=== PATIENT | female | born 1955 | race Caucasian/White ===

== ENCOUNTER 2021-04-01 11:47 | Outpatient (CLI) | payer MEDICARE, BC, SELFPAY ==
--- NOTE | 2021-04-01 11:57 | RAD_ITS ---
STUDY: X-RAY CHEST REASON FOR EXAM: Female, 65 years old. PAIN TECHNIQUE: Frontal and lateral views of the chest COMPARISON: None. FINDINGS: The lungs are clear and expanded. There is no demonstrated pleural abnormality. Normal size heart. Normal mediastinum and brando. Normal visualized pulmonary arteries. Normal visualized aortic arch and descending thoracic aorta. Normal visualized thoracic spine. Normal visualized ribs, clavicles, and shoulders. There is no demonstrated abnormality of the visualized soft tissue structures of the upper abdomen. RAD/Chest PA and Lateral IMPRESSION: Normal x-ray examination of the chest. Electronically Signed: Joaquin Gross MD at 17:27 EST ,
== END 2021-04-01 23:59 | disposition short-term general hospital (02) ==
LOC: MTRAD 11:55
PROVIDERS: PCP Family Medicine; Referring Provider Family Medicine; Visit Provider Family Medicine
DX: M54.9 Dorsalgia, unspecified (principal)
CPT/HCPCS: 71046

== ENCOUNTER 2021-04-21 10:07 | Outpatient (CLI) | payer MEDICARE, BC, SELFPAY ==
--- NOTE | 2021-04-21 10:17 | MRI_ITS ---
STUDY: MRI THORACIC SPINE WITHOUT CONTRAST REASON FOR EXAM: Female, 65 years old. RT SIDED BACK PAIN TECHNIQUE: Standardized fat and water weighted pulse sequences were obtained in the sagittal and axial planes. COMPARISON: None. FINDINGS: Normal kyphosis of the thoracic spine. There is no substantial scoliosis. T1-2, T2-3, T3-4, T4-5, T5-6, T6-7, T7-8, T8-9, T9-10, T10-11, T11-12: Normal endplates. Normal disc hydration, heights and morphology of the corresponding intervertebral discs. Normal central canal and intervertebral neural foramina at the corresponding levels. Normal visualized thoracic cord. Normal conus medullaris that terminates at the L1.. The soft tissue structures are unremarkable. MRI/Spine Thoracic (Routine) IMPRESSION: Normal unenhanced MRI examination of the thoracic spine. Electronically Signed: Ilya Benavides MD at 13:48 EST ,
== END 2021-04-21 23:59 | disposition home or self-care (01) ==
LOC: MRI 10:09
PROVIDERS: PCP Family Medicine; Referring Provider Family Medicine; Visit Provider Family Medicine
DX: M54.6 Pain in thoracic spine (principal)
CPT/HCPCS: 72146

== ENCOUNTER 2021-05-15 17:42 | Outpatient (CLI) | payer MEDICARE, BC, SELFPAY ==
--- NOTE | 2021-05-15 17:54 | CT_ITS ---
INDICATION: Abdominal pain. EXAMINATION: CT ABDOMEN WITH IV CONTRAST CT Abdomen W/ Contrast Injection TECHNIQUE: Helically acquired images were obtained of the abdomen following IV contrast. A radiation dose optimization technique was used for this scan. IV Contrast dosage and agent: 100 mL of [id number] Oral contrast: None. COMPARISON: None. FINDINGS: Lower thorax: Segmental subsegmental atelectasis in the lung bases. Otherwise, the lung bases are clear. Liver: Normal morphology. No masses. Gallbladder: Normal appearance. No bile duct dilation. Spleen: Unremarkable. Pancreas: No focal parenchymal lesion. No duct dilation. Adrenal glands: Unremarkable. Kidneys: No cystic or solid masses. No hydronephrosis. Visualized GI tract: No significant wall thickening or bowel dilation. No acute findings. Visualized Peritoneum/mesentery/retroperitoneum: No free air or free fluid. No masses. No lymphadenopathy. Pelvis: No acute findings in the minimally visualized pelvis. Vasculature: Unremarkable. Bones/soft tissues: No acute fracture or subluxation. 4 mm of grade 1 anterolisthesis of L4 on L5. Levoscoliosis of the lumbar spine with apex of the curve at L4 which likely contributes to the moderate to severe degenerative disc disease seen at L4-L5. No other significant degenerative changes. No destructive osseous lesions. Soft tissues are unremarkable. CT/Abdomen WITH IV Contrast IMPRESSION: 1. No acute findings in the abdomen. 2. Levoscoliosis of the lumbar spine with apex of the curve at L4 which likely contributes to the moderate to severe degenerative disc disease at the L4-L5 level. Electronically Signed: Nader Nevarez, at 8:59 EDT ,
[2021-05-15 18:06] LABS: CREATININE FINGERSTICK 0.6 mg/dL (0.55-1.02); EGFR FINGERSTICK > 60.0000 mL/min (>60)
== END 2021-05-15 23:59 | disposition home or self-care (01) ==
LOC: CT 17:42
PROVIDERS: PCP Family Medicine; Visit Provider Family Medicine
DX: R10.11 Right upper quadrant pain (principal)
CPT/HCPCS: 74160; Q9967

== ENCOUNTER → 2021-07-22 | Outpatient (CLI) | payer MEDICARE, BC, SELFPAY ==
--- NOTE | 2021-07-22 08:52 | BD_ITS ---
STUDY: DUAL ENERGY X-RAY ABSORPTIOMETRY / DXA REASON FOR EXAM: Female, 65 years old. M85.89. The patient is postmenopausal. TECHNIQUE: Bone Mineral Density (BMD) measurements of lumbar spine and bilateral hips were obtained. COMPARISON: None. FINDINGS: Lumbar Spine (L1-L4): g/cm2 (0.881) / T-score (-1.2) / Z-score (0.7) Findings are suggestive of osteopenia with a low fracture risk. Left Femur Total: g/cm2 (0.841) / T-score (-0.8) / Z-score (0.5) Left Femoral Neck: g/cm2 (0.695) / T-score (-1.4) / Z-score (0.3) Right Femur Total: g/cm2 (0.808) / T-score (-1.1) / Z-score (0.3) Right Femoral Neck: g/cm2 (0.675) / T-score (-1.6) / Z-score (0.1) BD/Dexa Bone Density Study IMPRESSION: The patient is considered osteopenic as outlined below according to World Justo Organization (WHO) criteria with a moderate fracture risk. Reference Information: The T-score is the number of standard deviations above or below the standard which is normal for young adults at their peak bone mineral density. The World Health Organization (WHO) interprets the T-scores as follows: Above -1 Normal bone density Between -1 and -2.5 Osteopenia Equal to / or below -2.5 Osteoporosis As a practical clinical guideline, osteopenia may be graded as follows: Mild -1 through -1.5 Moderate -1.6 through -2.0 Severe -2.1 through -2.4 The Z-score is the number of standard deviations above or below age-matched controls. A Z-score of less than -1.5 would be considered abnormal. References: 1. NIH Osteoporosis and Related Bone Diseases www osteo.org 2. International Society for Clinical Densitometry www iscd.org 3. National Osteoporosis Foundation www nof.org Electronically Signed: Juan David Ruiz MD at 9:03 EDT ,
== END | disposition home or self-care (01) ==
LOC: OPBD 08:47
PROVIDERS: PCP Family Medicine; Visit Provider Family Medicine
DX: M85.89 Other specified disorders of bone density and structure, multiple sites (principal)
CPT/HCPCS: 77080

== ENCOUNTER → 2021-10-20 | Outpatient (CLI) | payer MEDICARE, BC, SELFPAY ==
--- NOTE | 2021-10-20 08:37 | BI_ITS ---
MAMMOGRAPHY - BILATERAL SCREENING REASON FOR EXAM: Female, 65 years old. Routine annual screening examination. PERTINENT HISTORY: Non-contributory. TECHNIQUE: Digital bilateral breast lance (3D mammographic acquisition) in the CC and MLO projections. 2-D mediolateral oblique (MLO) and craniocaudad (CC) views of both breasts were obtained. CAD: Full Field Digital Mammography with Computer Added Detection was performed. COMPARISON: No comparison mammograms available at this time. If any prior films become available, an addendum to this report can be generated. FINDINGS: Breast Composition: The breasts are heterogeneously dense, which may obscure small masses. There are no dominant masses or suspicious calcifications. No other significant abnormalities are identified. BI/SCRN MAMM (CAD)W/LANCE BILAT IMPRESSION: Negative screening mammogram. Yearly followup mammogram recommended. (A) ASSESSMENT CATEGORY: BIRADS Category 1: Negative. A letter regarding these results will be sent to the patient by the facility within 30 days. Approximately 10% of breast cancers are not detected by mammography. A normal mammogram should not delay biopsy of a clinically suspicious abnormality. [id number] Electronically Signed: Juan David Ruiz MD at 13:41 EDT ,
== END | disposition home or self-care (01) ==
LOC: OPBI 08:36
PROVIDERS: PCP Family Medicine; Visit Provider Family Medicine
DX: Z12.31 Encounter for screening mammogram for malignant neoplasm of breast (principal)
CPT/HCPCS: 77063; 77067

== ENCOUNTER → 2022-01-06 | Outpatient (CLI) | payer MEDICARE, BC, SELFPAY ==
[2022-01-06 08:57] LABS: Absolute Lymphocyte Count 1.45 X10^3/uL (0.83-4.51); Absolute Neutrophil Count 1.8 X10^3/uL (2.0-7.7); Basophil# 0.04 X10^3/uL; Basophil% 1.1 % (0-1); Eosinophil# 0.07 X10^3/uL; Eosinophils% 1.9 % (0-5); Hematocrit 43.3 % (37-47); Hemoglobin 14.9 g/dL (12.0-15.0); Lymphocyte # 1.45 X10^3/ul (0.83-4.51); Lymphocyte % 39.2 % (19-41); Mean Corp Hgb Conc 34.4 g/dL (32-36); Mean Corpuscular Hgb 31.8 pg (27.0-32.0); Mean Corpuscular Volume 92.3 fL (81-99); Mean Platelet Vol. 8.5 fl (6.2-12.0); Monocyte# 0.38 X10^3/uL; Monocyte% 10.3 % (0-10); NRBC Flagged by Analyzer 0 % (0-5); Neutrophil # 1.75 X10^3/uL (2.7-7.7); Neutrophil % 47.2 % (47-70); Platelet Count 300 K/mm3 (150-450); RBC Distribution Width CV 12.6 % (11.6-14.6); RBC Distribution Width SD 42.7 fl (35.1-43.9); Red Blood Count 4.69 M/mm3 (4.2-5.4); White Blood Count 3.7 K/mm3 (4.4-11.0)
[2022-01-06 09:16] LABS: Hemoglobin A1c 5.9 % (3.8-5.6)
[2022-01-06 09:30] LABS: Vitamin D,25 Hydroxy 53.2 ng/mL
[2022-01-06 09:42] LABS: ALB/GLOB Ratio 1.2 RATIO (0.9-2.4); AST(SGOT) 16 U/L (15-37); Alanine Aminotransfer ALT/SGPT 32 U/L (13-56); Albumin, Serum 3.7 g/dL (3.2-5.0); Alkaline Phosphatase 86 U/L (45-117); Anion Gap 7 (5-15); BUN 18 mg/dL (7-18); BUN/Creat Ratio 24.9 RATIO (10-20); Calcium,Total 9.2 mg/dL (8.5-10.1); Chloride 103 mmol/L (98-107); Cholesterol 237 mg/dL (200); Creatinine, Serum 0.72 mg/dL (0.55-1.02); EST Glomerular Filtration Rate 85 mL/min (>60); Est Glom Filt Rate - Afr Amer 103 mL/min (>60); Glucose 99 mg/dL (74-106); High Density Lipoprotein 110 mg/dL; Potassium 4.5 mmol/L (3.5-5.1); Protein, Total 6.7 g/dL (6.4-8.2); Sodium Level 138 mmol/L (136-145); Thyroid Stim Hormone (TSH) 1.03 uIU/mL (0.358-3.74); Triglycerides 84 mg/dL; Very Low Density Lipoprotein 17 mg/dL (5-40)
== END | disposition home or self-care (01) ==
LOC: LAB 08:19
PROVIDERS: PCP Family Medicine; Referring Provider Family Medicine; Visit Provider Family Medicine
DX: I10 Essential (primary) hypertension (principal); R73.03 Prediabetes; R53.83 Other fatigue
CPT/HCPCS: 36415; 80053; 80061; 82306; 83036; 84443; 85025

== ENCOUNTER 2022-02-11 10:30 | Outpatient (RCR) | payer MEDICARE, BC, SELFPAY ==
--- NOTE | 2021-12-15 11:36 | HP.PTREVAL ---
Dr. Ekaterina Dennis MD, It has been my pleasure to treat JOELLE KIRKPATRICK over the last 4 visits for R shoulder pain. Please see the progress note below for an update on the physical therapy plan of care! Subjective: I am much better but i still have some pain with quick movements Objective/Function: R shoulder pain ranges from 0-3/10. R shoulder ROM: flex= 165, scap= 165. R shoulder MMT: flex= 14, abd= 24 #F. Pt is progressing well at this time. Still limited with advanced functional mobility (pickle ball) Plan Plan: Reassess in 1 month Balance/Gait/Functional tests - Balance/Special Test Scores Quick DASH Score: 22.7250 Goals Goal 1:: I with HEP of R shoulder rotator cuff and scap stab ex's Goal Time Frame: 1 Week Goal Progress: Goal Met Anticipated Interventions Patient/Client Instruction: Educate patient on: Condition, Plan of Care For the Purpose of:: To improve self management Therapeutic Exercise to Include: Strength training, Scapular Strength/Stabilization For the Purpose of:: To decrease pain, To improve muscle performance and motor function Cryotherapy (ice pack, ice massage): Yes For the Purpose of:: To decrease pain, To improve muscle performance and motor function Please do not hesitate to contact me at [phone] by phone or if you have questions or concerns regarding this new plan of care! Sincerely, Dave Potts, PT, ATC
--- NOTE | 2021-12-15 11:36 | HP.PTEVAL ---
Patient's Visit Information JOELLE KIRKPATRICK is a 66 year old F referred to Physical Therapy by Dr. Ekaterina Dennis MD with a diagnosis of R shoulder pain. Date of Evaluation: 10/30/21 Physical Therapist: Dave Potts, PT, ATC - Visit Plan Frequency: 2x /Week Duration: 1 Week Plan: Reassess in 1 month - Subjective Pt reports her R shoulder has been sore since July of 2021. Pt reports she was trying to kayak at that point and she couldn't secondary to her R shoulder pain. Pt also notes she has difficulty with lifting her grandchild secondary to pain. Pt reports she recently had an injection in her R shoulder which really helped to take away her pain. Pt notes she likes to play pickle ball and that tends to increase her pain as well. Pt reports she has difficulty with driving, overhead lifting, and reaching out in front of her. Pt is R hand dominant. Pt reports no UE tingling or numbness at this time. Pt denies any sleep difficulty secondary to pain. Pt reports her goal is to get ex's for her R shoulder in order to help her to be able to get back to playing pickleball as soon as possible. 1/10 pain at rest, 8/10 pain at worst (after playing pickleball at that time) - Pain R shoulder pain Pain Intensity (Out of 10): 1 Pain Intensity Range: 8 Comment: 0-3 - Objective Neuro: B UE sensation is WNL to light touch. B bicipital reflex= 2/3. Palpation: Pt is very tender along the LHB tendon. No obvious deformity at this time. MMT: R shoulder flex= 12, abd= 25, ER= 13, IR= 9 #F ; L shoulder flex= 16, abd= 24, ER= 16, IR= 19 #F. ROM: L shoulder flex= 160, abd= 170, ER= 70, IR WNL; R shoulder flex= 170, abd= 170, ER= 65, IR WNL. Special tests: Pos speeds test, weak empty can test - Balance/Special Test Scores Quick DASH Score: 22.7250 - Goals Goal 1:: I with HEP of R shoulder rotator cuff and scap stab ex's Goal Time Frame: 1 Week - Rehabilitation Potential Physical Therapy Diagnosis: Pt has R shoulder pain and weakness secondary to tendonitis of the LHB tendon Rehabilitation Potential: Good - Anticipated Interventions Patient/Client Instruction: Educate patient on: Condition, Plan of Care For the Purpose of:: To improve self management Therapeutic Exercise to Include: Strength training, Scapular Strength/Stabilization For the Purpose of:: To decrease pain, To improve muscle performance and motor function Cryotherapy (ice pack, ice massage): Yes For the Purpose of:: To decrease pain, To improve muscle performance and motor function Thank you for the opportunity to evaluate your patient. For Medicare and Medicare HMO plans, please review the plan of care and approve it. It will need to be FAXED BACK to us at [phone] for Medicare purposes. For Medicare only, by signing this I certify the plan of care. Please let me know if there are questions or concerns regarding this plan of care. Physician Signature: Date:
--- NOTE | 2022-01-14 12:00 | HP.PTREVAL ---
Dr. Ekaterina Dennis MD, It has been my pleasure to treat JOELLE KIRKPATRICK over the last 5 visits for R shoulder pain. Please see the progress note below for an update on the physical therapy plan of care! Subjective: Pain ranges from 0-3/10. The sharp pain is gone. Objective/Function: R shoulder pain ranges from 0-3/10. R shoulder ROM: flex= 170, scap= 165. R shoulder MMT: flex= 16, abd= 28 #F. Pt is progressing well at this time. Still limited with advanced functional mobility (pickle ball) Plan Plan: Follow up or discharge in 1 month Balance/Gait/Functional tests - Balance/Special Test Scores Quick DASH Score: 22.7250 Goals Goal 1:: I with HEP of R shoulder rotator cuff and scap stab ex's Goal Time Frame: 1 Week Goal Progress: Goal Met Anticipated Interventions Patient/Client Instruction: Educate patient on: Condition, Plan of Care For the Purpose of:: To improve self management Therapeutic Exercise to Include: Strength training, Scapular Strength/Stabilization For the Purpose of:: To decrease pain, To improve muscle performance and motor function Cryotherapy (ice pack, ice massage): Yes For the Purpose of:: To decrease pain, To improve muscle performance and motor function Please do not hesitate to contact me at [phone] by phone or if you have questions or concerns regarding this new plan of care! Sincerely, Dave Potts, PT, ATC
--- NOTE | 2022-02-11 10:54 | HP.PTDCSUM ---
It has been my pleasure to treat JOELLE KIRKPATRICK referred by Dr. Ekaterina Dennis MD, with the diagnosis of R shoulder pain for a total of 6 visit(s). Discharge Date: Please see the following information for a summary of their discharge status. Subjective: My pain is about the same. R shoulder pain Pain Intensity (Out of 10): 0 % Improvement: 85 Objective/Function: R shoulder pain ranges from 0-4/10. R shoulder ROM: flex= 170, abd= 170, ER= 55, IR= WNL. R shoulder MMT: flex= 17, abd= 30, ER= 21, IR= 21 #F. I with HEP Goal 1:: I with HEP of R shoulder rotator cuff and scap stab ex's Goal Progress: Goal Met Plan: Discharge to HEP If there are questions or concerns regarding this patient's physical therapy, please feel free to call me at [phone]. Thank you for the referral of this patient. Sincerely, Dave Potts, PT, ATC Balance/Gait/Functional tests - Balance/Special Test Scores Quick DASH Score: 22.7250
== END 2022-02-11 13:35 | disposition home or self-care (01) ==
LOC: PT 10:30
PROVIDERS: PCP Family Medicine; Referring Provider Family Medicine; Visit Provider Family Medicine
DX: M25.519 Pain in unspecified shoulder (principal)
CPT/HCPCS: 97110; 97161; 97164

== ENCOUNTER → 2022-04-26 | Outpatient (CLI) | payer MEDICARE, BC, SELFPAY ==
--- NOTE | 2022-04-26 09:17 | MRI_ITS ---
STUDY: MRI CERVICAL SPINE WITHOUT CONTRAST REASON FOR EXAM: Female, 66 years old. Left cervical radiculopathy. TECHNIQUE: Standardized fat and water weighted pulse sequences were obtained in the sagittal and axial planes. COMPARISON: None FINDINGS: Normal foramen magnum and brainstem-cervical cord junction. Normal craniovertebral junction. Normal anterior atlantoaxial articulation. Normal odontoid process. Mild cervical kyphosis at the C4 vertebral body level. Normal vertebral bodies and posterior osseous elements. C2-3: Normal endplates. Normal disc height, signal and morphology. Normal central canal and intervertebral neural foramina. C3-4: Normal endplates. Mild left-sided degenerative anterolisthesis of C3 on C4. Moderate anterior disc space height narrowing. Normal central canal and right intervertebral neural foramen. Pronounced stenosis of the left intervertebral neural foramen and moderately pronounced left degenerative facet arthropathy. C4-5: Normal endplates. Mild disc space height narrowing. Normal central canal. Moderately pronounced stenosis of the right intervertebral neural foramen. Mild stenosis of the left intervertebral neural foramen. C5-6: Normal endplates. Mild disc space height narrowing. Normal central canal and left intervertebral neural foramen. Mild stenosis of right intervertebral neural foramen. C6-7: Normal endplates. Mild disc space height narrowing. Normal central canal and intervertebral neural foramina. T1-T2: (Sagittal only). Normal endplates. Normal disc height. Small posterior bulging annulus. Normal central canal and intervertebral neural foramina. T2-T3, T3-T4, T4-T5 and T5-T6: (Sagittal only). Normal endplates. Normal disc height, signal and morphology. Normal central canal and intervertebral neural foramina. Normal cervical cord. Normal included upper thoracic spinal cord, brainstem and cerebellum. Normal visualized soft tissue structures. MRI/Spine Cervical (Routine) IMPRESSION: 1. Mild left-sided degenerative anterolisthesis of C3 on C4, pronounced stenosis of the left C3-C4 intervertebral neural foramen and moderately pronounced left degenerative facet arthropathy. 2. Moderately pronounced stenosis of the right C4-C5 intervertebral neural foramen and mild stenosis of the left C4-C5 intervertebral neural foramen. 3. Mild stenosis of the right C5-C6 intervertebral neural foramen. 4. No MRI evidence of cervical extruded disc fragment or disc protrusion. 5. Normal cervical spinal cord. Electronically Signed: Pete Wilkinson MD at 10:25 EST ,
== END | disposition home or self-care (01) ==
PROVIDERS: PCP Family Medicine; Referring Provider Family Medicine; Visit Provider Family Medicine
DX: M54.12 Radiculopathy, cervical region (principal)
CPT/HCPCS: 72141

== ENCOUNTER 2022-07-03 09:30 | Outpatient (RCR) | payer MEDICARE, BC, SELFPAY ==
--- NOTE | 2022-04-01 11:30 | HP.PTEVAL ---
Patient's Visit Information JOELLE KIRKPATRICK is a 66 year old F referred to Physical Therapy by Dr. Ekaterina Dennis MD with a diagnosis of Dorsalgia. Date of Evaluation: 04/01/22 Physical Therapist: Dave Potts, PT, ATC - Visit Plan Frequency: 2-3x /Week Duration: 4-6 Weeks Plan: Postural edu, DTR to c/s, scap stab ex's, UBE, and HEP. C/S traction as tolerated - Subjective Pt reports she has had L medial shoulder blade pain for approximately 2 1/2 weeks. Pt reports the pain originated from taking down [place] decorations at that time. Pt notes she took Aleve and used MH which took away her pain for 2 days. Then the pain returned and she has been in severe pain since. Pt notes prolonged sitting increases her pain. Pt notes the pain has started to radiate into the L UE to the wrist region. Pt notes her pain will become severe at night when she lays down, and she is only able to sleep at this time with taking pain meds. Pt describes her pain as a deep pain, like someone has a attending psychiatrist there. Pt reports she is R hand dominant. Pt notes she has been overcompensating with the use of her L UE secondary to R shoulder pain. 3/10 pain at rest, 8/10 pain at worst (at night when she lays down) - Pain L Medial scapular region Pain Intensity (Out of 10): 3 Pain Intensity Range: 8 - Objective Neuro: B UE sensation is WNL to light touch. B bicipital reflex= 2/3. Palpation: Pt is tender along the T4 vertebral segment. No obvious deformity noted at this time. ROM: B UE ROM is WNL when compared bilaterally. C/S ROM is WNL at this time. MMT: R shoulder ER 4/5. All other B UE MMT 5/5 throughout. cervcial spine repeated movements: RPIS 10x3 radiates pain to the medial scap region. RRIS 10x3 referred pain to same region. Special tests: pos c/s distraction and compression tests - Balance/Special Test Scores Oswestry Low Back Score: 10 - Goals Goal 1:: Decrease L medial scapula pain x 50% to aid with sleep Goal Time Frame: 4-6 Weeks Goal 2:: Decrease the frequency and intensity of L UE radiculopathy x 50% to aid with IADL's Goal Time Frame: 4-6 Weeks Goal 3:: I with HEP Goal Time Frame: 4-6 Weeks - Rehabilitation Potential Physical Therapy Diagnosis: Pt has L medial scapula pain and L UE radiculopathy secondary to DDD in c/s Rehabilitation Potential: Good - Anticipated Interventions Patient/Client Instruction: Educate patient on: Condition, Plan of Care For the Purpose of:: To improve self management Therapeutic Exercise to Include: Strength training, Postural training, Dynamic Lumbar Stabilization For the Purpose of:: To decrease pain, To improve muscle performance and motor function Manual Therapy Techniques to Include: Soft tissue mobilization For the Purpose of:: To decrease pain Intermittent cervical traction: Yes For the Purpose of:: To decrease pain Thank you for the opportunity to evaluate your patient. For Medicare and Medicare HMO plans, please review the plan of care and approve it. It will need to be FAXED BACK to us at [phone] for Medicare purposes. For Medicare only, by signing this I certify the plan of care. Please let me know if there are questions or concerns regarding this plan of care. Physician Signature: Date:
--- NOTE | 2022-05-29 11:34 | HP.PTREVAL ---
Dr. Ekaterina Dennis MD, It has been my pleasure to treat JOELLE KIRKPATRICK over the last 7 visits for Dorsalgia. Please see the progress note below for an update on the physical therapy plan of care! Subjective: PATIENT REPORTS SEEING DR. GALLO 05/18/22. DX'D WITH DDD AND SURGERY NOT RECOMMENDED. STATES OPTIONS SHE WAS GIVEN ARE TO CONTROL THE PAIN WITH MEDICATION,, PHYSICAL THERAPY AND/OR PAIN MGMT. HAS BEEN IN [place]. TAKING MEDICATION PRESCRIBED AND SEEMS TO BE HELPING. CURRENT SX'S: MILD LEFT NECK/SHLD BLADE AREA DISCOMFORT THAT IS INTERMITTENT AND RARE NOW. NO UE SX'S. PATIENT GOAL: TO SEE IF THERE IS ANYTHING PHYSICAL THERAPY CAN DO TO HELP. PATIENT REPORTS DR. GARNER TOLD HER SHE DOES NOT HAVE ANY PHYSICIAN RESTRICTIONS. Objective/Function: PATIENT WAS SEEN TODAY FOR RE-ASSESSMENT OF PROGRESS TOWARD THE SET PT GOALS AND THE NEED FOR FURTHER PHYSICAL THERAPY VS READINESS FOR DISCHARGE. PATIENT APPEARS TO BE A GOOD CANDIDATE TO RESUME PT. UPON EXAM TODAY: PATIENT HAS DONTE UE LIGHT TOUCH SENSATION GROSSLY INTACT AND SYMMETRICAL. DONTE UE ROM WFL AND DONTE UE STRENGTH GROSSLY 4/5 WITH MMT'ING EXCEPT SHLD'S 4/5. PATIENT DENIES ANY L UE SX'S WITH ROM AND STRENGTH TESTING. CERVICAL MVMT LOSS: FLEX - MIN. EXT - MOD. BSB - MOD. DONTE ROT - MIN. PATIENT DENIES ANY SX'S WITH ROM TESTING. AT END OF ALL TESTING PATIENT REPORTED MILD INCREASE IN L NECK PAIN AND NO L UE SX'S. TREATMENT: HEP INSTRUCTION FOR SUPINE ISO RETRACTION AND SUPINE DEEP NECK FLEXOR HEAD LIFT. PATIENT TOLERATED EX'S IN CLINIC WELL TODAY AND COMMUNICATED A GOOD UNDERSTANDING OF HOME INSTRUCTIONS AFTER GIVEN. [ End ] Plan Plan: CONTINUE PT 2 TIMES A WK X 3-4 WKS. PATIENT AGREEABLE. POSTURE CORRECTION/STRENGTHENING, INSTRUCTION IN APPROPRIATE BODY MECHANICS AND ACTIVITY MODIFICATIONS. DONTE UE ROM, STRETCHING AND STRENGTHENING TAKING R SHLD HX INTO CONSIDERATION. HEP INSTRUCTION. Balance/Gait/Functional tests - Balance/Special Test Scores Oswestry Low Back Score: 10 Oswestry Neck Score: 2 Goals Goal 1:: Decrease L medial scapula pain x 50% to aid with sleep Goal Time Frame: 4-6 Weeks Goal Progress: Goal Met Goal 2:: Decrease the frequency and intensity of L UE radiculopathy x 50% to aid with IADL's Goal Time Frame: 4-6 Weeks Goal Progress: Goal Met Goal 3:: I with HEP Goal Time Frame: 4-6 Weeks Goal Progress: Progressing Anticipated Interventions Patient/Client Instruction: Educate patient on: Condition, Plan of Care For the Purpose of:: To improve self management Therapeutic Exercise to Include: Strength training, Postural training, Dynamic Lumbar Stabilization For the Purpose of:: To decrease pain, To improve muscle performance and motor function Manual Therapy Techniques to Include: Soft tissue mobilization For the Purpose of:: To decrease pain Intermittent cervical traction: Yes For the Purpose of:: To decrease pain Please do not hesitate to contact me at [phone] by phone or if you have questions or concerns regarding this new plan of care! Sincerely, Becca Willis, PT, Cert MDT
--- NOTE | 2022-09-28 15:18 | HP.PT.NRP ---
Patient Information Patient Information: JOELLE KIRKPATRICK was seen in my office for initial evaluation on 04/01/22. The following Plan of Care was established for this patient: POC Established Initial Frequency: 2-3x /Week Initial Duration: 4-6 Weeks Anticipated Interventions Patient/Client Instruction: Educate patient on: Condition and Plan of Care For the Purpose of:: To improve self management Therapeutic Exercise to Include: Strength training, Postural training and Dynamic Lumbar Stabilization For the Purpose of:: To decrease pain and To improve muscle performance and motor function Manual Therapy Techniques to Include: Soft tissue mobilization For the Purpose of:: To decrease pain Intermittent cervical traction: Yes For the Purpose of:: To decrease pain Last Seen Last Seen: This patient was last seen in our office 07/03/22. Pertinent comments regarding their Physical therapy will appear below: This patient has not returned to Physical Therapy and is appropriate to return to MD for further follow-up as needed. At this point I will be discontinuing this patient from physical therapy. I would be happy to see this patient again in the future if found appropriate by the physician. Thank you! Becca Willis, PT, Cert MDT Balance/Gait/Functional tests Balance/Special Test Scores Oswestry Low Back Score: 10 Oswestry Neck Score: 2
== END 2022-07-03 19:00 | disposition home or self-care (01) ==
LOC: PT 09:30
PROVIDERS: PCP Family Medicine; Referring Provider Family Medicine; Visit Provider Family Medicine
DX: M54.9 Dorsalgia, unspecified (principal)
CPT/HCPCS: 97012; 97035; 97140; 97161; 97164; 97530

== ENCOUNTER → 2022-10-27 | Outpatient (CLI) | payer MEDICARE, BC, SELFPAY ==
--- NOTE | 2022-10-27 08:02 | BI_ITS ---
MAMMOGRAPHY - BILATERAL SCREENING REASON FOR EXAM: Female, 66 years old. Routine annual screening examination. PERTINENT HISTORY: Non-contributory. TECHNIQUE: Digital bilateral breast lance (3D mammographic acquisition) in the CC and MLO projections. 2-D mediolateral oblique (MLO) and craniocaudad (CC) views of both breasts were obtained. CAD: Full Field Digital Mammography with Computer Added Detection was performed. COMPARISON: Comparison is made with prior study dated October 20, 2021. FINDINGS: Breast Composition: The breasts are heterogeneously dense, which may obscure small masses. There are no dominant masses or suspicious calcifications. No other significant abnormalities are identified. There has been no significant change since the prior study. BI/SCRN MAMM (CAD)W/LANCE BILAT IMPRESSION: Stable bilateral screening mammogram. Yearly follow-up mammogram recommended. (A) ASSESSMENT CATEGORY: BIRADS Category 1: Negative. A letter regarding these results will be sent to the patient by the facility within 30 days. Approximately 10% of breast cancers are not detected by mammography. A normal mammogram should not delay biopsy of a clinically suspicious abnormality. [id number] Electronically Signed: Juan David Ruiz MD at 8:14 EDT ,
== END | disposition home or self-care (01) ==
LOC: OPBI 08:01
PROVIDERS: PCP Family Medicine; Visit Provider Family Medicine
DX: Z12.31 Encounter for screening mammogram for malignant neoplasm of breast (principal)
CPT/HCPCS: 77063; 77067

== ENCOUNTER → 2023-02-03 | Outpatient (CLI) | payer MEDICARE, BC, SELFPAY ==
[2023-02-03 09:47] LABS: Absolute Lymphocyte Count 1.49 X10^3/uL (0.83-4.51); Absolute Neutrophil Count 1.4 X10^3/uL (2.0-7.7); Basophil# 0.04 X10^3/uL; Basophil% 1.2 % (0-1); Eosinophil# 0.06 X10^3/uL; Eosinophils% 1.8 % (0-5); Hematocrit 43.5 % (37-47); Hemoglobin 14.5 g/dL (12.0-15.0); Lymphocyte # 1.49 X10^3/ul (0.83-4.51); Lymphocyte % 44.5 % (19-41); Mean Corp Hgb Conc 33.3 g/dL (32-36); Mean Corpuscular Hgb 30.7 pg (27.0-32.0); Mean Platelet Vol. 8.9 fl (6.2-12.0); Monocyte# 0.38 X10^3/uL; Monocyte% 11.3 % (0-10); NRBC Flagged by Analyzer 0 % (0-5); Neutrophil # 1.37 X10^3/uL (2.7-7.7); Neutrophil % 40.9 % (47-70); Platelet Count 298 K/mm3 (150-450); RBC Distribution Width CV 13.2 % (11.6-14.6); RBC Distribution Width SD 44.2 fl (35.1-43.9); Red Blood Count 4.73 M/mm3 (4.2-5.4); White Blood Count 3.4 K/mm3 (4.4-11.0)
[2023-02-03 10:23] LABS: ALB/GLOB Ratio 1.3 RATIO (0.9-2.4); AST(SGOT) 21 U/L (15-37); Alanine Aminotransfer ALT/SGPT 27 U/L (13-56); Albumin, Serum 3.9 g/dL (3.2-5.0); Alkaline Phosphatase 105 U/L (45-117); Anion Gap 8 (5-15); BUN 16 mg/dL (7-18); BUN/Creat Ratio 22.7 RATIO (10-20); Calcium,Total 9.3 mg/dL (8.5-10.1); Chloride 102 mmol/L (98-107); Cholesterol 216 mg/dL (200); EST Glomerular Filtration Rate 88 mL/min (>60); Est Glom Filt Rate - Afr Amer 106 mL/min (>60); Globulin 3.1 g/dL (2.2-4.2); Glucose 93 mg/dL (74-106); High Density Lipoprotein 115 mg/dL; Potassium 4.4 mmol/L (3.5-5.1); Sodium Level 138 mmol/L (136-145); Thyroid Stim Hormone (TSH) 2.33 uIU/mL (0.358-3.74); Triglycerides 72 mg/dL; Very Low Density Lipoprotein 14 mg/dL (5-40)
[2023-02-03 12:17] LABS: Hemoglobin A1c 5.7 % (3.8-5.6)
== END | disposition home or self-care (01) ==
LOC: LAB 08:22
PROVIDERS: PCP Family Medicine; Referring Provider Family Medicine; Visit Provider Family Medicine
DX: I10 Essential (primary) hypertension (principal); R73.03 Prediabetes; R53.83 Other fatigue
CPT/HCPCS: 36415; 80053; 80061; 83036; 84443; 85025

== ENCOUNTER 2023-02-25 06:27 | Day surgery (SDC) | payer MEDICARE, BC, SELFPAY ==
[2023-02-25] VITALS (18 sets, daily range): BP systolic 73–154; BP diastolic 52–94; PULSE 65–81; RESP 16–20; TEMP 36.1–36.6; O2SAT 95–100; BMI 20.9
--- OUTSIDE RECORDS SUMMARY | 2023-02-25 06:38 | XMS RPT_ITS | CCD ---
Author Name Unknown Address [address] [place] [address] Organization [facility] Care Team Providers Care Quality Assurance Inspector Name Role Phone Johnathan Mcpherson Primary Care Provider CARINE BUCKLEY Attending Johnathan Pressley Primary Care Unavailable JOHNATHAN MCPHERSON Consulting Unavailable CARINE BUCKLEY Attending JOHNATHAN Pressley Consulting Unavailable JOHNATHAN MCPHERSON Primary Care Unavailable JOHNATHAN MCPHERSON Attending Unavailable JOHNATHAN MCPHERSON Primary Care Unavailable MARGOT ROBB Consulting Johnathan Pressley MD Primary Care Provider [phone] JOHNATHAN MCPHERSON Primary Care Unavailable MARGOT ROBB Referring Jordon rudolph Allergies Allergy Classification Reported Allergen(s) Allergy Type Date of Onset Reaction(s) Facility (1 source) Sulfonamides (Antibiotic); Translations: [sulfa drugs] Propensity to adverse reactions to drug (disorder) [facility] Repository Problems Problem Classification Problem Date Documented Da te Episodic/Chronic Osteoporosis (1 source) Osteoporosis; Translations: [Osteoporosis, unspecified osteoporosis type, unspecified pathological fracture presence] Chronic Other screening for suspected conditions (not mental disorders or infectious disease) (1 source) Patient encounter status; Translations: [Encounter for screening mammogram for malignant neoplasm of breast] Episodic Unclassified (2 sources) Patient encounter status; Translations: [Breast screening] Results Test Name Value Interpretation Reference Range Facil ity Encounters Encounter Date Encounter Type Care Provider Facility Start: 10-17-2020 End: 10-18-2020 ambulatory JOHNATHAN MCPHERSON [facility] Start: 10-17-2020 End: 10-17-2020 Subsequent hospital visit by physician Str Mammography Rm3 Dig [facility] Procedures Date Procedure Procedure Detail Performing Clinician Start: 10-17-2020 Screening mammograph y bi 2-view breast inc cad Mammography Self Referral Start: 10-06-2019 Screening mammograph y bi 2-view breast inc cad Margot Rudolph [employer] Work Phone: Start: 08-17-2019 Dxa bone density rickie dy 1/> sites axial skel Margot Moshe [employer] Work Phone: Plan of Treatment Date Care Activity Detail Author Start: 10-17-2022 Screening for malign ant neoplasm [facility] Start: 10-30-2020 Influenza vaccination Flu vaccine (# 1) [facility] [employer] Phone: Start: 09-16-2020 Screening for malign ant neoplasm of breast Breast cancer screen [place], [place] Start: 10-31-2019 Influenza vaccination M [place], [place] Start: 10-06-2019 End: 10-06-2019 Appointment 10/06/2019 Appointment Radiology [facility] Start: 09-18-2019 End: 09-18-2019 Appointment 09/18/2019 Appointment Radiology [facility] Start: 07-30-2019 Annual Wellness Visi t (AWV) Annual Wellness Visit (AWV) [place], [place] Start: 06-20-2019 Shingles Vaccine (2 of 2) Shingles Vaccine (2 of 2) [place] Start: 2018 Pneumococcal 65+ yea rs Vaccine (1 of 1 - PPSV23) Pneumococcal 65+ years Vaccine (1 of 1 - PPSV23) [place] Start: 2018 Pneumococcal 65+ yea rs Vaccine (2 of 2 - PPSV23) Pneumococcal 65+ years Vaccine (2 of 2 - PPSV23) [place] Start: 12-15-2003 Screening for malign ant neoplasm of colon Colon cancer screen colonoscopy [place] Start: 12-15-2003 Shingles Vaccine (1 of 2) Shingles Vaccine (1 of 2) [place] Start: 1998 Screening for malign ant neoplasm of colon Colon cancer screen colonoscopy [facility] Phone: Start: 1993 [facility] [place] [place] Start: 1974 Screening for malign ant neoplasm of cervix Cervical cancer screen [place], [place] Start: 1972 DTaP/Tdap/Td vaccine (1 - Tdap) DTaP/Tdap/Td vaccine (1 - Tdap) [place], [place] Start: 1968 HIV screening [facility] [place] [place] Start: 1953 Hepatitis C screening Hepatitis C sc reen [place], [place] Payers Date Payer Category Payer Medicare 2019 Unknown 2018 Medicare MEDICARE MEDICAR E PART A AND B xxxxxxxxxxx 2018-Present [phone] [place] [address] xxxxxxxxxxx [id number] 2018 Medicare MEDICARE MEDICAR E PART A AND B [id number] 2018-Present [phone] [id number] [place] [address] [id number] 2018 Medicare [id number] 2018 Unknown [employer] ANTHEM MEDI CARE SUPP xxxxxxxxxxxx 2018-Present [id number] [place] [address] xxxxxxxxxxxx [id number] 2018 Unknown [employer] ANTHEM MEDI CARE SUPP [id number] 2018-Present [address] [place] [address] [id number] 2018 Unknown [id number] 1955 Unknown [id number] 1955 Unknown [id number] 1955 Unknown [id number] 1955 Unknown [id number] Social History Date Type Detail Facility Tobacco smoking stat [facility] Unknown if ever smoked [facility] Sex Assigned At Not on file [facility] Start: 10-17-2020 Tobacco smoking stat [facility] Never smoker [facility] [employer] [facility] Phone: Start: 10-17-2020 Tobacco use and exposure Never used [employer] Start: 1955 Sex Assigned At Female M [employer] Phone: Clinical Note 10-17-2020 Note Date & Type Note Facility 10-17-2020 Note LOCATION: [place] PROCEDURE: [facility] LANCE DIGITAL SCREEN SELF REFERRAL W OR WO CAD BILATERAL CLINICAL INFORMATION: Visit for screening mammogram. Tomosynthesis. CLINICAL: Self-referred screening mammogram PATIENT MEDICAL HISTORY: No relevant medical history has been documented for this patient. FAMILY HISTORY: No relevant family history has been documented for this patient. RISK VALUES: Amyer-Heaven 10yr.: 3.6%, Tyrer-Heaven life: 7.3% COMPARISON: 10/06/2019, 09/16/2018 and 08/10/2017. TECHNIQUE: Bilateral CC and MLO views of the breasts were obtained. 3D tomosynthesis was utilized. CAD was utilized. BREAST COMPOSITION: The tissue of the breast(s) is heterogeneously dense. This may lower the sensitivity of mammography. FINDINGS: There are few bilateral scattered benign calcifications. No significant masses, calcifications, or other findings are seen in the breast(s). There has been no significant interval change. IMPRESSION: No mammographic evidence of malignancy. A 1 year screening mammogram is recommended. A result letter will be sent to the patient. She will also receive a reminder 1 month prior to her next mammogram. . BI-RADS CATEGORY 2: BENIGN FINDINGS. Management Recommendation: Routine annual mammography. This report has been created using voice recognition software. It may contain minor errors which are inherent in voice recognition technology. Final report electronically signed by Dr. Nasreen Hammond on 10/17/2020 3:53 PM Interpreted by: Nasreen Hammond MD Signed by: Nasreen Hammond MD 10/17/20 CC Recipients: Margot Robb MD - Fax Johnathan Mcpherson MD - Fax Final result [facility] Clinical Note 10-17-2020 Note Date & Type Note Facility 10-17-2020 Note LOCATION: [facility]: [facility] LANCE DIGITAL SCREEN SELF REFERRAL W OR WO CAD BILATERAL CLINICAL INFORMATION: Visit for screening mammogram. Tomosynthesis. CLINICAL: Self-referred screening mammogram PATIENT MEDICAL HISTORY: No relevant medical history has been documented for this patient. FAMILY HISTORY: No relevant family history has been documented for this patient. RISK VALUES: Tyrer-Cuzick 10yr.: 3.6%, Tyrer-Cuzick life: 7.3% COMPARISON: 10/06/2019, 09/16/2018 and 08/10/2017. TECHNIQUE: Bilateral CC and MLO views of the breasts were obtained. 3D tomosynthesis was utilized. CAD was utilized. BREAST COMPOSITION: The tissue of the breast(s) is heterogeneously dense. This may lower the sensitivity of mammography. FINDINGS: There are few bilateral scattered benign calcifications. No significant masses, calcifications, or other findings are seen in the breast(s). There has been no significant interval change. [employer] Work Phone: Evaluation note Note Date & Type Note Facility documented in this encounter [facility] [employer] [facility] Phone: Assessments Diagnosis Osteoporosis, unspecified osteoporosis type, unspecified pathological fracture presence Diagnosis Breast screening Breast screening, unspecified Diagnosis Breast cancer screening Breast screening, unspecified Advance Directives No Advanced Directives Records FoundDocuments on File Type Date Recorded Patient Cd Reactor Operator Expl anation Advance Directives and Living Will Power of Shoulder Joiner Documents on File Type Date Recorded Patient Cd Reactor Operator Expl anation ACP-Advance Directive ACP-Power of Shoulder Joiner Summary Purpose Family History No Family History Records FoundNo Family History Records Found Reason for Referral Status Reason Specialty Diagnoses / Procedures Referred By Contact Referred To Contact Authorized Radiology Diagnoses Breast cancer screening Procedures [facility] LANCE DIGITAL SCREEN BILATERAL Margot Robb MD [address] [place] [address] Status Reason Specialty Diagnoses / Procedures Referred By Contact Referred To Contact Closed Radiology Diagnoses Visit for screening mammogram Procedures [facility] LANCE DIGITAL SCREEN SELF REFERRAL W OR WO CAD BILATERAL Self Referral, Mammography Additional Source Comments Reason for Visit (unrecogniz ed section and content) Status Reason Specialty Diagnoses / Procedures Referred By Contact Referred To Contact Not Required - [facility] Radiology Diagnoses Encounter for screening mammogram for malignant neoplasm of breast Procedures [facility] DIGITAL SCREEN SELF REFERRAL W OR WO CAD BILATERAL Margot Robb MD [address] [place] [address] [place] [address] Status Reason Specialty Diagnoses / Procedures Referre d By Contact Referred To Contact Closed Radiology Diagnoses Breast cancer screening Procedures [facility] LANCE DIGITAL SCREEN BILATERAL Margot Robb MD [address] [place] [address] [place] [address] INFORMATION SOURCE (unrecogn ized section and content) DATE CREATED AUTHOR AUTHOR'S ORGANIZ ATION 10/19/2020 [facility] FOR RECORDS PERTAINING TO PATIENTS WHO ARE OR HAVE BEEN ENROLLED IN A CHEMICAL DEPENDENCY/SUBSTANCEABUSE PROGRAM, SOME INFORMATION MAY BE OMITTED. This clinical summary was aggregated from multiple sources. Caution should be exercised in using it in the provision of clinical care. This summary normalizes information from multiple sources, and as a consequence, information in this document may materially change the coding, format and clinical context of patient data. In addition, data may be omitted in some cases. CLINICAL DECISIONS SHOULD BE BASED ON THE PRIMARY CLINICAL RECORDS. [facility] [employer] [facility]. provides no warranty or guarantee of the accuracy or completeness of information in this document.
--- NOTE | 2023-02-25 06:54 | HP.PCM_ITS ---
HPI - General General Date of Admission: 11/14/19 Date of Service: 02/25/23 Chief Complaint: Personal history of colon polyps HPI Narrative JOELLE KIRKPATRICK, is a 67 F who presents for colonoscopy. She has not had any previous ones done locally most recently she had them done in [facility]. In approximately 2007 she had 2 adenomatous polyps removed. In 2013 she had a colonoscopy that was normal. That was March 2013. She denies any abdominal pain. No bright red blood per rectum or melena. No unexpected weight loss. Health otherwise is good other than for prediabetes . There is no family history of colon cancer. [facility] Medical History (Updated 02/25/23 @ 06:[address] Sachin Rosenthal MD) Arthritis Cervical spinal stenosis Dietary restriction Family hx of colon cancer History of echocardiogram History of irregular heartbeat History of stress test HTN (hypertension) Hx of adenomatous polyp of colon Non-smoker Osteopenia Post-menopausal Pre-diabetes Wears glasses Home Medications calcium citrate 315 mg calcium-vitamin D3 6.25 mcg (250 unit) tablet 1 tab PO DAILY 12/21/22 [History Last Taken 02/24/23] cholecalciferol (vitamin D3) 50 mcg (2,000 unit) capsule 50 mcg PO DAILY 12/21/22 [History Last Taken 02/24/23] lisinopril 10 mg tablet 10 mg PO QHS 12/21/22 [History Last Taken 02/24/23] multivitamin 1 tab PO DAILY 12/21/22 [History Last Taken 02/23/23] omega-3 fatty acids-fish oil 300 mg-500 mg capsule (Fish Oil) 1 cap PO DAILY 12/21/22 [History Last Taken 02/21/23] nrobbbqsiil-tih-ujhqplafk-vitC capsule (Glucosamine Complex-MSM capsule) 2 cap PO DAILY 02/19/23 [History Last Taken 02/24/23] lutein 10 mg tablet 10 mg PO DAILY 02/19/23 [History Last Taken 02/23/23] Allergy/AdvReac Type Severity Reaction Status Date / Time Sulfa (Sulfonamide Allergy Rash Verified 02/25/23 06:51 Antibiotics) Azo Grantrisin Allergy Rash Uncoded 12/21/22 09:40 Family History (Updated 12/21/22 @ 09:27 by Jojo Oswald) Aunt Colon cancer Uncle Colon cancer Surgical History (Updated 12/21/22 @ 09:27 by Jojo Oswald) Hx of colonoscopy Hx of right knee surgery Social History (Updated 12/21/22 @ 09:39 by Jojo Oswald) household members: spouse current occupational status: retired Smoking Status: Never smoker alcohol intake: never substance use type: does not use ROS Constitutional Constitutional: Reports systems reviewed and no addt'l complaints, except as documented Cardiovascular Cardiovascular: Denies chest pain Respiratory/Chest Respiratory/Chest: Denies shortness of breath at rest Gastrointestinal Gastrointestinal: Denies abdominal pain, change in bowel habits, hematochezia or melena Physical Exam Const alert, oriented x3 and no apparent distress General Appearance: cooperative and comfortable Eyes General Eye: normal appearance of both eyes Neck General: normal visual inspection Chest inspection of chest normal Resp Effort and Inspection: able to speak in complete sentences and symmetric chest movement Auscultation: clear to auscultation bilaterally Cardio regular rate and regular rhythm GI soft to palpation, non-tender and non-distended Extremity no calf tenderness Neuro oriented x3 Psych thought process normal Assessment & Plan Assessment/Plan (1) Hx of adenomatous polyp of colon: PLAN: 67-year-old female. She presents via open access today for a colonoscopy. Most recently 1 was March 2013 and that was normal although previously she had had 1 with polyps. She is had an opportunity to ask and have questions answered. We will proceed as noted. Sachin Rosenthal M.D., F.A.C.S.
[2023-02-25] MEDS: Lactated Ringers 1,000 ML 15 ML IV (06:58)
[2023-02-25] MEDS: Midazolam 5 MG/ML Syringe (07:22)
--- NOTE | 2023-02-25 07:30 | COLBX_PTH ---
PATHOLOGY RESULTS PATIENT: JOELLE KIRKPATRICK LOC: EN U#:[id number] AGE/SX: 67/F ROOM: RE02/25/[address]: Dr. Sachin Rosenthal MD : 1955 BED: DIS: 02/25/2023 SPEC #: [id number] RECD: 02/25/23 10:59 STATUS: REGINA BOND #: [id number] WILLIAN: 02/25/23 07:[address]: Sachin Rosenthal DEPT: SURGICAL PATHOLOGY RECD BY: Swati Goldman ENTERED: 02/25/23 10:59 SP TYPE: COLON BX OTHR DR: Dr. Ekaterina Dennis MD Tissues: Transverse colon Procedures: Surgery Specimen Level IV HEADER OPERATION: Colonoscopy - open access with biopsy PRE-OP DIAGNOSIS: History of adenomatous polyp of colon TISSUE SUBMITTED: Distal transverse colon polyp biopsy MICROSCOPIC DIAGNOSIS Distal transverse colon polyp, biopsy: A fragment of colonic mucosa, no pathologic diagnosis. SJ:lazaro 02/26/2023 COMMENT Case has been reviewed in consultation with Dr. Block who concurs with the above diagnosis. IDC:AM MICROSCOPIC DESCRIPTION Slides are reviewed. GROSS DESCRIPTION Received in fixative is one container labeled with the patient's name and designated distal transverse colon polyp biopsy. The specimen consists of one irregular fragment of light alonzo soft tissue that measures 0.3 x 0.3 x 0.1 cm. The specimen is totally submitted in one cassette. / SEBASTIAN:lazaro 02/25/2023 TC:4 CPT: 65691
--- NOTE | 2023-02-25 07:40 | OP.CCLET_ITS ---
02/25/2023 Ekaterina Dennis [place] [id number] [place] [address] Re : Colonoscopy procedure for Emma Thomasr Dear Dr. Dennis This procedure was performed on January. My impressions and recommendations are as follows: Impressions : - Non-thrombosed internal hemorrhoids and internal hemorrhoids (Grade I) found on digital rectal exam. - One 4 mm polyp in the distal transverse colon, removed with a cold biopsy forceps. Resected and retrieved. - Diverticulosis in the sigmoid colon. Recommendations : - Discharge patient to home. - Resume previous diet. - Continue present medications. - Repeat colonoscopy in 5 years for surveillance based on pathology results. - Telephone my office for pathology results in 1 week. My findings are described in the full procedure note, which is enclosed. If I can be of further assistance, please feel free to contact me at Doctor phone number(s): Work: . Sincerely, Sachin Rosenthal MD 02/25/2023 7:39:48 AM This report has been signed electronically.
--- NOTE | 2023-02-25 07:40 | OP.COLON_ITS ---
Patient Name: Emma Cummings Procedure Date: 02/25/2023 7:09 AM Date of : 1955 Age: 67 Procedure: Colonoscopy Indications: High risk colon cancer surveillance: Personal history of colonic polyps Providers: Sachin Rosenthal MD Referring MD: Ekaterina Dennis Medicines: Midazolam 3.5 mg IV, Meperidine 100 mg IV Patient Profile: Last Colonoscopy: March 2013. Complications: No immediate complications. Procedure: Pre-Anesthesia Assessment: - Prior to the procedure, a History and Physical was performed, and patient medications and allergies were reviewed. The patient's tolerance of previous anesthesia was also reviewed. The risks and benefits of the procedure and the sedation options and risks were discussed with the patient. All questions were answered, and informed consent was obtained. Prior Anticoagulants: The patient has taken no anticoagulant or antiplatelet agents. ASA Grade Assessment: II - A patient with mild systemic disease. After reviewing the risks and benefits, the patient was deemed in satisfactory condition to undergo the procedure. After I obtained informed consent, the scope was passed under direct vision. Throughout the procedure, the patient's blood pressure, pulse, and oxygen saturations were monitored continuously. The adult colonoscope was introduced through the anus and advanced to the cecum, identified by appendiceal orifice and ileocecal valve. The colonoscopy was performed without difficulty. The patient tolerated the procedure well. The quality of the bowel preparation was excellent. The ileocecal valve and the appendiceal orifice were photographed. Moderate Sedation: Moderate (conscious) sedation was personally administered by the endoscopist. The following parameters were monitored: oxygen saturation, heart rate, blood pressure, and response to care. Total physician intraservice time was 15 minutes. Scope In: 7:19:24 AM Scope Withdrawal Time 0 hours 9 minutes 13 seconds Scope Out: 7:33:32 AM Total Procedure Duration Time 0 hours 14 minutes 8 seconds Findings: The digital rectal exam findings include non-thrombosed internal hemorrhoids and internal hemorrhoids (Grade I). A 4 mm polyp was found in the distal transverse colon. The polyp was sessile. The polyp was removed with a cold biopsy forceps. Resection and retrieval were complete. Scattered diverticula were found in the sigmoid colon. Impression: - Non-thrombosed internal hemorrhoids and internal hemorrhoids (Grade I) found on digital rectal exam. - One 4 mm polyp in the distal transverse colon, removed with a cold biopsy forceps. Resected and retrieved. - Diverticulosis in the sigmoid colon. Recommendation: - Discharge patient to home. - Resume previous diet. - Continue present medications. - Repeat colonoscopy in 5 years for surveillance based on pathology results. - Telephone my office for pathology results in 1 week. Procedure Code(s): --- Professional --- 54416, Colonoscopy, flexible; with biopsy, single or multiple 64866, 59, Moderate sedation services provided by the same physician or other qualified health transitional care nurse performing the diagnostic or therapeutic service that the sedation supports, requiring the presence of an independent trained observer to assist in the monitoring of the patient's level of consciousness and physiological status; initial 15 minutes of intraservice time, patient age 5 years or older Diagnosis Code(s): --- Professional --- Z86.010, Personal history of colonic polyps K64.0, First degree hemorrhoids D12.3, Benign neoplasm of transverse colon (hepatic flexure or splenic flexure) K57.30, Diverticulosis of large intestine without perforation or abscess without bleeding CPT copyright 2021 [employer]. All rights reserved. The codes documented in this report are preliminary and upon process project engineer review may be revised to meet current compliance requirements. Sachin Rosenthal MD 02/25/2023 7:39:48 AM This report has been signed electronically. Number of Addenda: 0 Note Initiated On: 02/25/2023 7:09 AM
[2023-02-25] MEDS: Lactated Ringers 1,000 ML 999 ML IV (08:34)
== END 2023-02-25 10:05 | disposition home or self-care (01) ==
LOC: EN 06:27 → AC 06:29
PROVIDERS: PCP Family Medicine; Referring Provider Family Medicine; Visit Provider Surgery
PROC: 0DJD8ZZ Inspection of Lower Intestinal Tract, Via Natural or Artificial Opening Endoscopic (ICD-10-PCS; CPT 45378; principal; 2023-02-25 07:25)
DX: Z12.11 Encounter for screening for malignant neoplasm of colon (principal); K57.30 Diverticulosis of large intestine without perforation or abscess without bleeding; Z86.010 Personal history of colon polyps; I10 Essential (primary) hypertension; R73.03 Prediabetes; Z80.0 Family history of malignant neoplasm of digestive organs; K64.0 First degree hemorrhoids; D12.3 Benign neoplasm of transverse colon
CPT/HCPCS: 45380; 88305; 99152; 99153; J7120

== ENCOUNTER → 2023-11-02 | Outpatient (CLI) | payer MEDICARE, BC, SELFPAY ==
--- NOTE | 2023-11-02 13:20 | BI_ITS ---
MAMMOGRAPHY - BILATERAL SCREENING REASON FOR EXAM: Female, 67 years old. Routine annual screening examination. PERTINENT HISTORY: Non-contributory. TECHNIQUE: Digital bilateral breast lance (3D mammographic acquisition) in the CC and MLO projections. 2-D mediolateral oblique (MLO) and craniocaudad (CC) views of both breasts were obtained. CAD: Full Field Digital Mammography with Computer Added Detection was performed. COMPARISON: Comparison is made with prior study October 27, 2022 and October 20, 2021. FINDINGS: Breast Composition: The breasts are heterogeneously dense, which may obscure small masses. There are no dominant masses or suspicious calcifications. No other significant abnormalities are identified. There has been no significant change since the prior study. BI/SCRN MAMM (CAD)W/LANCE BILAT IMPRESSION: Stable bilateral screening mammogram. Yearly follow-up mammogram recommended. (A) ASSESSMENT CATEGORY: BIRADS Category 1: Negative. A letter regarding these results will be sent to the patient by the facility within 30 days. Approximately 10% of breast cancers are not detected by mammography. A normal mammogram should not delay biopsy of a clinically suspicious abnormality. [id number] Electronically Signed: Juan David Ruiz MD at 14:25 EDT ,
== END | disposition home or self-care (01) ==
LOC: OPBI 13:19
PROVIDERS: PCP Family Medicine; Referring Provider Family Medicine; Visit Provider Family Medicine
DX: Z12.31 Encounter for screening mammogram for malignant neoplasm of breast (principal)
CPT/HCPCS: 77063; 77067

== ENCOUNTER → 2024-02-15 | Outpatient (CLI) | payer MEDICARE, BC, SELFPAY ==
[2024-02-15 10:22] LABS: Absolute Lymphocyte Count 1.19 X10^3/uL (0.83-4.51); Basophil# 0.04 X10^3/uL; Basophil% 1.1 % (0-1); Eosinophil# 0.07 X10^3/uL; Hematocrit 40.1 % (37-47); Hemoglobin 13.6 g/dL (12.0-15.0); Lymphocyte # 1.19 X10^3/ul (0.83-4.51); Lymphocyte % 33.2 % (19-41); Mean Corp Hgb Conc 33.9 g/dL (32-36); Mean Corpuscular Hgb 30.7 pg (27.0-32.0); Mean Corpuscular Volume 90.5 fL (81-99); Mean Platelet Vol. 8.2 fl (6.2-12.0); Monocyte# 0.29 X10^3/uL; Monocyte% 8.1 % (0-10); NRBC Flagged by Analyzer 0 % (0-5); Neutrophil # 1.98 X10^3/uL (2.7-7.7); Neutrophil % 55.3 % (47-70); Platelet Count 297 K/mm3 (150-450); RBC Distribution Width SD 43.2 fl (35.1-43.9); Red Blood Count 4.43 M/mm3 (4.2-5.4); White Blood Count 3.6 K/mm3 (4.4-11.0)
[2024-02-15 11:08] LABS: Hemoglobin A1c 5.7 % (3.8-5.6)
[2024-02-15 11:11] LABS: ALB/GLOB Ratio 1.2 RATIO (0.9-2.4); AST(SGOT) 17 U/L (15-37); Alanine Aminotransfer ALT/SGPT 23 U/L (13-56); Albumin, Serum 3.7 g/dL (3.2-5.0); Alkaline Phosphatase 85 U/L (45-117); Anion Gap 4 (5-15); BUN 15 mg/dL (7-18); BUN/Creat Ratio 22.1 RATIO (10-20); Calcium,Total 9.1 mg/dL (8.5-10.1); Chloride 106 mmol/L (98-107); Cholesterol 212 mg/dL (200); Creatinine, Serum 0.68 mg/dL (0.55-1.02); EST Glomerular Filtration Rate 91 mL/min (>60); Est Glom Filt Rate - Afr Amer 110 mL/min (>60); Globulin 3.1 g/dL (2.2-4.2); Glucose 107 mg/dL (74-106); High Density Lipoprotein 108 mg/dL; Potassium 4.3 mmol/L (3.5-5.1); Protein, Total 6.8 g/dL (6.4-8.2); Sodium Level 138 mmol/L (136-145); Triglycerides 77 mg/dL; Very Low Density Lipoprotein 15 mg/dL (5-40)
== END | disposition home or self-care (01) ==
LOC: LAB 09:58
PROVIDERS: PCP Family Medicine; Referring Provider Family Medicine; Visit Provider Family Medicine
DX: I10 Essential (primary) hypertension (principal); R73.03 Prediabetes
CPT/HCPCS: 36415; 80053; 80061; 83036; 84443; 85025

== ENCOUNTER → 2024-07-13 | Outpatient (CLI) | payer MEDICARE, BC, SELFPAY ==
--- NOTE | 2024-07-13 09:26 | BD_ITS ---
PROCEDURE: DEXA BONE DENSITY STUDY 07/13/2024 REASON FOR EXAM: F, age 68 y/o . Postmenopausal. TECHNIQUE: DXA scan of sites with data reported below. REFERENCE LINKS: [facility] Adult Position[facility] COMPARISON: Prior study dated July 22, 2021. FINDINGS: BMD and T-SCORES Lumbar spine: 0.978 g/cm2, T-score -0.4 Levels: L1 through L4 Change from prior: Improvement of 11%. Left femoral neck: 0.634 g/cm2, T-score -1.9 Femoral neck comparison data not recommended for monitoring change. Left total hip: 0.747 g/cm2, T-score -1.6 Change from prior: Loss of 7.5%. Right femoral neck: 0.661 g/cm2, T-score -1.7 Femoral neck comparison data not recommended for monitoring change. Right total hip: 0.771 g/cm2, T-score -1.4 Change from prior: Loss of 8.3%. The World Health Organization has defined the following categories based on bone density: Normal bone density: T-score equal to or greater than -1.0 Osteopenia: T-score between -1.0 and -2.5 Osteoporosis: T-score equal to or less than -2.5 The patient does meet the pharmacological treatment recommendations for prevention of osteoporosis. BD/Dexa Bone Density Study IMPRESSION: OSTEOPENIA. Recommend follow-up as clinically warranted. Reading Location: [id number]
== END | disposition home or self-care (01) ==
LOC: OPBD 09:24
PROVIDERS: PCP Family Medicine; Referring Provider Family Medicine; Visit Provider Family Medicine
DX: M85.80 Other specified disorders of bone density and structure, unspecified site (principal); Z78.0 Asymptomatic menopausal state
CPT/HCPCS: 77080

== ENCOUNTER → 2024-11-06 | Outpatient (CLI) | payer MEDICARE, BC, SELFPAY ==
--- NOTE | 2024-11-06 10:50 | BI_ITS ---
EXAM: SCRN MAMM (CAD)W/LANCE BILAT DATE: 11/06/2024 CLINICAL HISTORY: F, Age 68 y/o , SCREENING TECHNIQUE: Procedure Code: [id number] Modality: MG Procedure: SCRN MAMM (CAD)W/LANCE BILAT COMPARISON: Prior exam(s) were compared FINDINGS: TISSUE DENSITY: The breasts are heterogeneously dense, which may obscure small masses. Bilateral Breast Mammographic Findings: No suspicious masses, calcifications or other abnormalities are identified. BI/SCRN MAMM (CAD)W/LANCE BILAT IMPRESSION: No mammographic evidence of malignancy in either breast OVERALL FINAL ASSESSMENT BI-RADS 1: NEGATIVE. RECOMMENDATION: Routine annual follow-up in 1 Year A letter with findings and recommendations will be mailed to the patient. Reading Location: [id number]
--- OUTSIDE RECORDS SUMMARY | 2024-11-06 19:20 | XMS RPT_ITS | CCD ---
Author Organization [facility] Care Team Providers Care Construction Trades Teacher Name Role Phone Johnathan Mcpherson Primary Care Provider CARINE BUCKLEY Attending UnavailJohnathan Hennessy Primary Care Unavailable JOHNATHAN MCPHERSON Consulting Unavailable CARINE BUCKLEY Attending UnavailJOHNATHAN Hennessy Consulting Unavailable JOHNATHAN MCPHERSON Primary Care Unavailable JOHNATHAN MCPHERSON Attending Unavailable JOHNATHAN MCPHERSON Primary Care Unavailable NORY JOLLY Consulting UnavailJohnathan Hennessy MD Primary Care Provider [phone] JOHNATHAN MCPHERSON Primary Care Unavailable NORY JOLLY Referring UnavailDr. kEaterina Mercado Primary Care Provider Jojo Oswald Attending Provider Unavailable Dr. Ekaterina Dennis Referring Provider Dr. Sachin Rosenthal Attending Provider Dr. Sachin Rosenthal Other Provider [phone] Ekaterina Dennis MD Primary Care Provider Dr. Ekaterina Dennis MD Attending Provider Dr. Ekaterina Dennis MD Referring Provider Ekaterina Dennis Attending Unavailable Ekaterina Dennis Primary Care Unavailable Ekaterina Dennis Referring Unavailable Ekaterina Dennis Attending Unavailable Ekaterina Dennis Primary Care Unavailable Ekaterina Dennis Referring Unavailable Ekaterina Dennis Attending Unavailable Ekaterina Dennis Primary Care Unavailable Ekaterina Dennis Referring Unavailable Allergies Allergy Classification Reported Allergen(s) Allergy Type Date of Onset Reaction(s) Facility (1 source) Sulfonamides (Antibiotic); Translations: [sulfa drugs] Propensity to adverse reactions to drug (disorder) [facility] (3 sources) Sulfonamides (Antibiotic) Allergy to substance 3 [facility] (4 sources) Azo Grantrisin; Translations: [Azo Grantrisin] Allergy to substance 3 [facility] (1 source) Sulfonamides (Antibiotic) Drug allergy (disorder) 3 [facility] Repository Medications Current Medications Medication Drug Class(es) Dates Sig (Normalized) Sig (Original) calcium citrate 1500 mg / cholecalciferol 250 unt oral tablet (3 sources) Vitamin D Start: 12-21-2022 Calcium Citrate-Vitamin D3 315 mg-6.25 mcg (250 unit) tablet Active 1 {tbl} PO DAILY December 21, 2022 12:00am Start: 12-21-2022 take 1 tablet by lisa once daily Calcium Citrate-Vitamin D3 Active 1 TABLET PO DAILY December 20, 2022 11:00pm cholecalciferol 0.05 mg oral capsule (3 sources) Vitamin D Start: 12-21-2022 take 1 capsule by mouth once daily Cholecalciferol (Vitamin D3) 50 mcg (2,000 unit) capsule Active 50 ug PO DAILY December 21, 2022 12:00am Wxfpcpbieoh-Qlp-Etrkwk ium-Vitc (Glucosamine Complex-Msm) capsule (2 sources) Start: 02-19-2023 Glucosamine-Ms m-Magnes ium-Vitc (Glucosamine Complex-Msm) capsule Active 2 NMA PO DAILY February 19, 2023 1:00am Start: 02-19-2023 take 2 capsules by mouth once daily Mikbaqhohmp-Wla-Asxpfqplk-Vitc (Glucosam ine Complex-Msm) capsule Active 2 CAP PO DAILY February 19, 2023 12:00am lisinopril 10 mg oral tablet (3 sources) Angiotensin Converting Enzyme Inhibitor Start: 12-21-2022 take 1 tablet by mouth at bedtime Lisinopril 10 mg tablet Active 10 mg PO AT BEDTIME December 21, 2022 12:00am lutein 10 mg oral tablet (2 sources) Start: 02-19-2023 take 1 tablet by mouth once daily Lutein 10 mg tablet Active 10 mg PO DAILY February 19, 2023 1:00am give with meal/snack lutein 25 mg / zeaxanthin 5 mg oral capsule (1 source) Start: 12-21-2022 Lutein-Zeaxanthin (Ocuvite Lutein 25) 25-5 mg capsule Active CAP PO December 20, 2022 11:00pm methylsulfonylmethane 1000 mg oral tablet (1 source) Start: 12-21-2022 take 1 capsule by mouth once daily Methylsulfonylmethane (Msm) 1,000 mg capsule Active 1000 MG PO .QD December 20, 2022 11:00pm Multivitamin preparation (2 sources) Start: 12-21-2022 take 1 tablet by mouth once daily Multivitamin Active 1 TABLET PO DAILY December 20, 2022 11:00pm Multivitamin tablet (1 source) Start: 12-21-2022 Multivitamin tablet Active 1 {tbl} PO DAILY December 21, 2022 12:00am [place]-3 Fatty Acids-Fish Oil (Fish Oil) 300-500 mg capsule (3 sources) Start: 12-21-2022 [place]-3 Fatty Acids-Fish Oil (Fish Oil) 300-500 mg capsule Active 1 NMA PO DAILY December 21, 2022 12:00am Start: 12-21-2022 take 1 capsule by mo uth once daily [place]-3 Fatty Acids-Fish Oil (Fish Oil) 300-500 mg capsule Active 1 CAP PO DAILY December 20, 2022 11:00pm Start: 12-21-2022 [place]-3 Fatty Acids-Fish Oil (Fish Oil) 300-500 mg capsule Active CAP PO December 20, 2022 11:00pm Problems Active Problems Problem Classification Problem Date Documented Da te Episodic/Chronic Essential hypertension (1 source) Essential (primary) hypertension; Translations: [Essential (primary) hypertension] Onset: 03-20-2024 Chronic Osteoporosis (1 source) Osteoporosis; Translations: [Osteoporosis, unspecified osteoporosis type, unspecified pathological fracture presence] Chronic Other and unspecified benign neoplasm (2 sources) History of adenomatous polyp of colon; Translations: [Personal history of colonic polyps] 02-25-2023 Episodic Other and unspecified benign neoplasm (1 source) Personal history of colonic polyps; Translations: [Personal history of colonic polyps] 02-25-2023 Episodic Other screening for suspected conditions (not mental disorders or infectious disease) (5 sources) Patient encounter status; Translations: [Encounter for screening mammogram for malignant neoplasm of breast] Onset: 11-01-2024 Episodic Unclassified (2 sources) Patient encounter status; Translations: [Breast screening] Past or Other Problems Problem Classification Problem Date Documented Da te Episodic/Chronic Other bone disease and musculoskeletal deformities (1 source) Other specified disorders of bone density and structure, unspecified site; Translations: [Other specified disorders of bone density and structure, unspecified site] Onset: 07-19-2024 Episodic Results Test Name Value Interpretation Reference Range Facility Bone density reportOrdered B y: Juan David Ruiz on 07-13-2024 Study report Skeletal system DXA [facility] Imaging Services [address] [place] [id number] Dexa Bone Density Study MR#: [id number] Acct: [id number] Name: JOELLE KIRKPATRICK Rep #: [id number] : 1955 F 68 From: Vik Ruiz MD PCP: Dr. Ekaterina Dennis MD Status: REG CLI Study:Dexa Bone Density Study Date of Exam: 07/13/24 Exam# [id number] Ordering Dr: Jonel Dennis MD PROCEDURE: DEXA BONE DENSITY STUDY 07/13/2024 REASON FOR EXAM: F, age 68 y/o . Postmenopausal. TECHNIQUE: DXA scan of sites with data reported below. RE[facility]ENCE LINKS: [facility] COMPARISON: Prior study dated July 22, 2021. FINDINGS: BMD and T-SCORES Lumbar spine: 0.978 g/cm2, T-score -0.4 Levels: L1 through L4 Change from prior: Improvement of 11%. Left femoral neck: 0.634 g/cm2, T-score -1.9 Femoral neck comparison data not recommended for monitoring change. Left total hip: 0.747 g/cm2, T-score -1.6 Change from prior: Loss of 7.5%. Right femoral neck: 0.661 g/cm2, T-score -1.7 Femoral neck comparison data not recommended for monitoring change. Right total hip: 0.771 g/cm2, T-score -1.4 Change from prior: Loss of 8.3%. The World Health Organization has defined the following categories based on bonedensity: Normal bone density: T-score equal to or greater than -1.0 Osteopenia: T-score between -1.0 and -2.5 Osteoporosis: T-score equal to or less than -2.5 The patient does meet the pharmacological treatment recommendations for prevention of osteoporosis. BD/Dexa Bone Density Study IMPRESSION: OSTEOPENIA. Recommend follow-up as clinically warranted. Reading Location: [id number] CC: Dr. Ekaterina Dennis MD ~ Instrumentation Fitter: Signed [facility] Dexa Bone Density Studyon Dexa Bone Density Study [facility] Imaging Services [address] [place] [id number] Dexa Bone Density Study MR#: [id number] Acct: [id number] Name: JOELLE KIRKPATRICK Rep #: [id number] : 1955 F 68 From: Juan David wang MD PCP: Dr. Ekaterina Dennis MD Status: REG CLI Study: Dexa Bone Density Study Date of Exam: 07/13/24 Exam# [id number] Ordering Dr: Ekaterina Dennis MD PROCEDURE: DEXA BONE DENSITY STUDY 07/13/2024 REASON FOR EXAM: F, age 68 y/o . Postmenopausal. TECHNIQUE: DXA scan of sites with data reported below. REFERENCE LINKS: [facility] Adult Positions COMPARISON: Prior study dated July 22, 2021. FINDINGS: BMD and T-SCORES Lumbar spine: 0.978 g/cm2, T-score -0.4 Levels: L1 through L4 Change from prior: Improvement of 11%. Left femoral neck: 0.634 g/cm2, T-score -1.9 Femoral neck comparison data not recommended for monitoring change. Left total hip: 0.747 g/cm2, T-score -1.6 Change from prior: Loss of 7.5%. Right femoral neck: 0.661 g/cm2, T-score -1.7 Femoral neck comparison data not recommended for monitoring change. Right total hip: 0.771 g/cm2, T-score -1.4 Change from prior: Loss of 8.3%. The World Health Organization has defined the following categories based on bone density: Normal bone density: T-score equal to or greater than -1.0 Osteopenia: T-score between -1.0 and -2.5 Osteoporosis: T-score equal to or less than -2.5 The patient does meet the pharmacological treatment recommendations for prevention of osteoporosis. BD/Dexa Bone Density Study IMPRESSION: OSTEOPENIA. Recommend follow-up as clinically warranted. Reading Location: [id number] CC: Dr. Ekaterina Dennis MD Instrumentation Fitter: Signed Normal [facility] CBC W/Diff, Automatedon 12- Absolute Lymph 1.19 X10 3/uL Normal 0.83-4.51 [facility] Comment on above: Performed By: #### L 500.4100, L500.4050, L501.9985, L100.0100, L501.9520 #### [facility] Laboratory [address] [place], [address] Absolute Neut 2.0 X10 3/uL Normal 2.0-7.7 [facility] Comment on above: Performed By: #### L 500.4100, L500.4050, L501.9985, L100.0100, L501.9520 #### [facility] [address] [place], [address] Basophils/100 WBC (Bld) 1.1 % High 0-1 [facility] Comment on above: Performed By: #### L 500.4100, L500.4050, L501.9985, L100.0100, L501.9520 #### [facility] [address] [place], [address] Eosinophils/100 WBC (Bld) 2.0 % Normal 0-5 [facility] Comment on above: Performed By: #### L 500.4100, L500.4050, L501.9985, L100.0100, L501.9520 #### [facility] [address] [place], [address] Erythrocyte distribution width (RBC) [Ratio] 13.0 % Normal 11.6-14.6 [facility] Comment on above: Performed By: #### L 500.4100, L500.4050, L501.9985, L100.0100, L501.9520 #### [facility] [address] [place], [address] Hematocrit (Bld) [Volume fraction] 40.1 % Normal 37-47 [facility] Comment on above: Performed By: #### L 500.4100, L500.4050, L501.9985, L100.0100, L501.9520 #### [facility] [address] [place], [address] Hemoglobin (Bld) [Mass/Vol] 13.6 g/dL Normal 12.0-15.0 [facility] Comment on above: Performed By: #### L 500.4100, L500.4050, L501.9985, L100.0100, L501.9520 #### [facility] [address] [place], [address] IG% 0.300 Normal 0.0-0.9 [facility] Comment on above: Result Comment: IG% - Immature Granulocytes (promyelocytes, myelocytes and metamyelocytes) > 1% indicates that a LEFT SHIFT is Present. Performed By: #### L 500.4100, L500.4050, L501.9985, L100.0100, L501.9520 #### [facility] [address] [place], [address] Lymphocytes/100 WBC (Bld) 33.2 % Normal 19-41 [facility] Comment on above: Performed By: #### L 500.4100, L500.4050, L501.9985, L100.0100, L501.9520 #### [facility] [address] [place], [address] MCH (RBC) [Entitic mass] 30.7 pg Normal 27.0-32.0 [facility] Comment on above: Performed By: #### L 500.4100, L500.4050, L501.9985, L100.0100, L501.9520 #### [facility] [address] [place], [address] MCHC (RBC) [Mass/Vol] 33.9 g/dL Normal 32-36 [facility] Comment on above: Performed By: #### L 500.4100, L500.4050, L501.9985, L100.0100, L501.9520 #### [facility] [address] [place], [address] MCV (RBC) [Entitic vol] 90.5 fL Normal 81-99 [facility] Comment on above: Performed By: #### L 500.4100, L500.4050, L501.9985, L100.0100, L501.9520 #### [facility] [address] [place], [address] Monocytes/100 WBC (Bld) 8.1 % Normal 0-10 [facility] Comment on above: Performed By: #### L 500.4100, L500.4050, L501.9985, L100.0100, L501.9520 #### [facility] [address] [place], [address] Neutrophils/100 WBC (Bld) 55.3 % Normal 47-70 [facility] Comment on above: Performed By: #### L 500.4100, L500.4050, L501.9985, L100.0100, L501.9520 #### [facility] [address] [place], [address] Nucleated RBC (Bld) [#/Vol] 0 10*3/uL Normal 0-5 [facility] Comment on above: Performed By: #### L 500.4100, L500.4050, L501.9985, L100.0100, L501.9520 #### [facility] [address] [place], [address] Platelet mean volume (Bld) [Entitic vol] 8.2 fL Normal 6.2-12.0 [facility] Comment on above: Performed By: #### L 500.4100, L500.4050, L501.9985, L100.0100, L501.9520 #### [facility] [address] [place], [address] Platelets (Bld) [#/Vol] 297 10*3/uL Normal 150-450 [facility] Comment on above: Performed By: #### L 500.4100, L500.4050, L501.9985, L100.0100, L501.9520 #### [facility] [address] [place], [address] RBC (Bld) [#/Vol] 4.43 10*6/uL Normal 4.2-5.4 [facility] Comment on above: Performed By: #### L 500.4100, L500.4050, L501.9985, L100.0100, L501.9520 #### [facility] [address] [place], [address] RDW SD 43.2 fl Normal 35.1-43.9 [facility] Comment on above: Performed By: #### L 500.4100, L500.4050, L501.9985, L100.0100, L501.9520 #### [facility] [address] [place], [address] WBC (Bld) [#/Vol] 3.6 10*3/uL Low 4.4-11.0 [facility] Comment on above: Performed By: #### L 500.4100, L500.4050, L501.9985, L100.0100, L501.9520 #### [facility] [address] [place], [address] Comprehensive Metabolic Prof ilon 02-15-2024 Albumin [Mass/Vol] 3.7 g/dL Normal 3.2-5.0 [facility] Comment on above: Performed By: #### L 500.4100, L500.4050, L501.9985, L100.0100, L501.9520 #### [facility] [address] [place], [address] Albumin/Globulin [Mass ratio] 1.2 {ratio} Normal 0.9-2.4 [facility] Comment on above: Performed By: #### L 500.4100, L500.4050, L501.9985, L100.0100, L501.9520 #### [facility] [address] [place], [address] ALK P 85 U/L Normal 45-117 [facility] Comment on above: Performed By: #### L 500.4100, L500.4050, L501.9985, L100.0100, L501.9520 #### [facility] [address] [place], [address] ALT [Catalytic activity/Vol] 23 U/L Normal 13-56 [facility] Comment on above: Performed By: #### L 500.4100, L500.4050, L501.9985, L100.0100, L501.9520 #### [facility] [address] [place], [address] AST [Catalytic activity/Vol] 17 U/L Normal 15-37 [facility] Comment on above: Performed By: #### L 500.4100, L500.4050, L501.9985, L100.0100, L501.9520 #### [facility] [address] [place], [address] Bilirubin [Mass/Vol] 1.00 mg/dL Normal 0.20-1.00 [facility] Comment on above: Result Comment: For patients on eltrombopag therapy, use of Dimension Bedias TBIL is not recommended. Performed By: #### L 500.4100, L500.4050, L501.9985, L100.0100, L501.9520 #### [facility] [address] [place], [address] BUN/CRE 22.1 RATIO High 10-20 [facility] Comment on above: Performed By: #### L 500.4100, L500.4050, L501.9985, L100.0100, L501.9520 #### [facility] [address] [place], [address] CA,Total 9.1 mg/dL Normal 8.5-10.1 [facility] Comment on above: Performed By: #### L 500.4100, L500.4050, L501.9985, L100.0100, L501.9520 #### [facility] [address] [place], [address] Chloride [Moles/Vol] 106 mmol/L Normal 98-107 [facility] Comment on above: Performed By: #### L 500.4100, L500.4050, L501.9985, L100.0100, L501.9520 #### [facility] [address] [place], [address] CO2 [Moles/Vol] 28.0 mmol/L Normal 21.0-32.0 [facility] Comment on above: Performed By: #### L 500.4100, L500.4050, L501.9985, L100.0100, L501.9520 #### [facility] [address] [place], [address] Creatinine [Mass/Vol] 0.68 mg/dL Normal 0.55-1.02 [facility] Comment on above: Result Comment: The validity of the calculated GFR GFRAA in patients over 70 years has not been determined. Clinical correlation is essential. Performed By: #### L 500.4100, L500.4050, L501.9985, L100.0100, L501.9520 #### [facility] [address] [place], [address] EST GFR - AA 110 mL/min Normal >60 [facility] Comment on above: Result Comment: Afri can [place] GFR Calc Performed By: #### L 500.4100, L500.4050, L501.9985, L100.0100, L501.9520 #### [facility] [address] [place], [address] GAP 4 Low 5-15 [facility] Comment on above: Performed By: #### L 500.4100, L500.4050, L501.9985, L100.0100, L501.9520 #### [facility] [address] [place], [address] GFR/1.73 sq M.predicted among non-blacks MDRD (S/P/Bld) [Vol rate/Area] 91 mL/min/{1.73_m2} Normal >60 [facility] Comment on above: Result Comment: Non- GFR Calc Performed By: #### L 500.4100, L500.4050, L501.9985, L100.0100, L501.9520 #### [facility] [address] [place], [address] Globulin (S) [Mass/Vol] 3.1 g/dL Normal 2.2-4.2 [facility] Comment on above: Performed By: #### L 500.4100, L500.4050, L501.9985, L100.0100, L501.9520 #### [facility] [address] [place], [address] Glucose [Mass/Vol] 107 mg/dL High 74-106 [facility] Comment on above: Result Comment: Fast ing Glucose result from 100 to 125 mg/dL suggests IMPAIRED HOMEOSTASIS per A.D.A. criteria. Performed By: #### L 500.4100, L500.4050, L501.9985, L100.0100, L501.9520 #### [facility] [address] [place], [address] Potassium [Moles/Vol] 4.3 mmol/L Normal 3.5-5.1 [facility] Comment on above: Performed By: #### L 500.4100, L500.4050, L501.9985, L100.0100, L501.9520 #### [facility] [address] [place], [address] Sodium [Moles/Vol] 138 mmol/L Normal 136-145 [facility] Comment on above: Performed By: #### L 500.4100, L500.4050, L501.9985, L100.0100, L501.9520 #### [facility] [address] [place], [address] T PROT 6.8 g/dL Normal 6.4-8.2 [facility] Comment on above: Performed By: #### L 500.4100, L500.4050, L501.9985, L100.0100, L501.9520 #### [facility] [address] [place], [address] Urea nitrogen [Mass/Vol] 15 mg/dL Normal 7-18 [facility] Comment on above: Performed By: #### L 500.4100, L500.4050, L501.9985, L100.0100, L501.9520 #### [facility] [address] [place], [address] Hemoglobin A1con 02-15-2024 HbA1c (Bld) [Mass fraction] 5.7 % High 3.8-5.6 [facility] Comment on above: Result Comment: Norm al < 5.7 % Prediabetic 5.7 - 6.4 % Diabetic >or= 6.5 % Please note range changes. Performed By: #### L 500.4100, L500.4050, L501.9985, L100.0100, L501.9520 #### [facility] [address] [place], [address] Lipid Profileon 02-15-2024 Cholesterol [Mass/Vol] 212 mg/dL High 200 [facility] Comment on above: Result Comment: <200 mg/dL Desirable 200-240 mg/dL Borderline >240 mg/dL High Risk Performed By: #### L 500.4100, L500.4050, L501.9985, L100.0100, L501.9520 #### [facility] [address] [place], [address] Cholesterol in HDL [Mass/Vol] 108 mg/dL Normal [facility] Comment on above: Result Comment: The drugs N-Acetylcysteine and Metamizole may falsely depress this assay. Reference Range HDL <40 mg/dL Low HDL Cholesterol HDL >or= 60 mg/dL High HDL Cholesterol Performed By: #### L 500.4100, L500.4050, L501.9985, L100.0100, L501.9520 #### [facility] [address] [place], [address] Cholesterol in LDL [Mass/Vol] 89 mg/dL Normal 0-130 [facility] Comment on above: Performed By: #### L 500.4100, L500.4050, L501.9985, L100.0100, L501.9520 #### [facility] [address] [place], [address] Cholesterol in VLDL [Mass/Vol] 15 mg/dL Normal 5-40 [facility] Comment on above: Performed By: #### L 500.4100, L500.4050, L501.9985, L100.0100, L501.9520 #### [facility] [address] [place], [address] Triglyceride [Mass/Vol] 77 mg/dL Normal [facility] Comment on above: Result Comment: The drugs N-Acetylcysteine and Metamizole may falsely depress this assay. Serum Triglycerides Reference Interval Normal <150 mg/dL Borderline high 150 - 199 mg/dL High 200 - 499 mg/dL Very High > or = 500 mg/dL Performed By: #### L 500.4100, L500.4050, L501.9985, L100.0100, L501.9520 #### [facility] [address] [place], [address] Thyroid Stim Hormone (TSH)on 02-15-2024 TSH 1.140 uIU/mL Normal 0.358-3.740 [facility] Comment on above: Performed By: #### L 500.4100, L500.4050, L501.9985, L100.0100, L501.9520 #### [facility] [address] [place], [address] Absolute lymphocyte countOrd ered By: Ekaterina Dennis on 02-03-2023 Lymphocytes Auto (Unsp spec) [#/Vol] 1.49 10*3/uL 0.83-4.51 [facility] Basophil percentageOrdered B y: Ekaterina Dennis on 02-03-2023 Basophils/100 WBC (Bld) 1.2 % 0-1 [facility] [facility] Bilirubin [Mass/Vol] 1.20 mg/dL 0.20-1.00 [facility] Comment on above: For patients on eltr ombopag therapy, use of Dimension Bedias TBIL is not recommended. Chloride [Moles/Vol] 102 mmol/L 98-107 [facility] Cholesterol [Mass/Vol] 216 mg/dL <200 [facility] Comment on above: <200 mg/dL Desirable 200-240 mg/dL Borderline >240 mg/dL High Risk Eosinophils/100 WBC (Bld) 1.8 % 0-5 [facility] Glucose [Mass/Vol] 93 mg/dL 74-106 [facility] Neutrophils (Bld) [#/Vol] 1.4 10*3/uL 2.0-7.7 [facility] Neutrophils/100 WBC (Bld) 40.9 % 47-70 [facility] Potassium [Moles/Vol] 4.4 mmol/L 3.5-5.1 [facility] Protein [Mass/Vol] 7.0 g/dL 6.4-8.2 [facility] Sodium [Moles/Vol] 138 mmol/L 136-145 [facility] Triglyceride [Mass/Vol] 72 mg/dL <199 [facility] Comment on above: The drugs N-Acetylcy steine and Metamizole may falsely depress this assay.Serum Triglycerides Reference Interval Normal <150 mg/dL Borderline high 150 - 199 mg/dL High 200 - 499 mg/dL Very High > or = 500 mg/dL WBC (Bld) [#/Vol] 3.4 10*3/uL 4.4-11.0 [facility] Blood erythrocytes count (nu mber/volume)Ordered By: Ekaterina Dennis on 02-03-2023 RBC (Bld) [#/Vol] 4.73 10*6/uL 4.2-5.4 [facility] Blood hemoglobin measurement (mass/volume)Ordered By: Ekaterina Dennis on 02-03-2023 Hemoglobin (Bld) [Mass/Vol] 14.5 g/dL 12.0-15.0 [facility] Blood lymphocytes/100 leukoc ytesOrdered By: Ekaterina Dennis on 02-03-2023 Lymphocytes/100 WBC (Bld) 44.5 % 19-41 [facility] Blood monocytes/100 leukocyt esOrdered By: Ekaterina Dennis on 02-03-2023 Monocytes/100 WBC (Bld) 11.3 % 0-10 [facility] Blood platelet mean volumeOr dered By: Ekaterina Dennis on 02-03-2023 Platelet mean volume (Bld) [Entitic vol] 8.9 fL 6.2-12.0 [facility] Determination of erythrocyte mean corpuscular volume (MCV)Ordered By: Ekaterina Dennis on 02-03-2023 MCV (RBC) [Entitic vol] 92.0 fL 81-99 [facility] Hematocrit Auto (Bld) [Volum e fraction]Ordered By: Ekaterina Dennis on 02-03-2023 Hematocrit (Bld) [Volume fraction] 43.5 % 37-47 [facility] Laboratory - Chemistry and C hemistry - challengeOrdered By: Ekaterina Dennis on 02-03-2023 ALP [Catalytic activity/Vol] 105 U/L 45-117 [facility] ALT [Catalytic activity/Vol] 27 U/L 13-56 [facility] CO2 [Moles/Vol] 28.0 mmol/L 21.0-32.0 [facility] Globulin (S) [Mass/Vol] 3.1 g/dL 2.2-4.2 [facility] Urea nitrogen/Creatinine [Mass ratio] 22.7 mg/mg 10-20 [facility] Laboratory - Hematology and Cell countsOrdered By: Ekaterina Dennis on 02-03-2023 Erythrocyte distribution width (RBC) [Entitic vol] 44.2 fL 35.1-43.9 [facility] Erythrocyte distribution width (RBC) [Ratio] 13.2 % 11.6-14.6 [facility] Immature granulocytes/100 WBC (Bld) 0.300 % 0.0-0.9 [facility] Comment on above: IG% - Immature Granu locytes (promyelocytes, myelocytes and metamyelocytes) > 1% indicates that a LEFT SHIFT is Present. MCH (RBC) [Entitic mass] 30.7 pg 27.0-32.0 [facility] Nucleated RBC/100 WBC (Bld) [Ratio] 0 % 0[facility] ([facility] [Mass/Vol]Or dered By: Ekaterina Dennis on 02-03-2023 MCHC (RBC) [Mass/Vol] 33.3 g/dL 32-36 [facility] No Panel InformationOrdered By: Ekaterina Dennis on 02-03-2023 Estimated GFR (MDRD) Amer 106 mL/min >60 [facility] Comment on above: GFR Calc Estimated GFR (MDRD) Non-Af Amer 88 mL/min >60 [facility] Comment on above: Non- GFR Calc Thyroid Stimulating Hormone (TSH) 2.33 uIU/mL 0.358-3.74 [facility] Platelets bldOrdered By: Bello Dennis on 02-03-2023 Platelets (Bld) [#/Vol] 298 10*3/uL 150-450 [facility] Serum or plasma albumin autumn urement (mass/volume)Ordered By: Ekaterina Dennis on 02-03-2023 Albumin [Mass/Vol] 3.9 g/dL 3.2-5.0 [facility] Serum or plasma albumin/glob ulin mass ratioOrdered By: Ekaterina Dennis on 02-03-2023 Albumin/Globulin [Mass ratio] 1.3 {ratio} 0.9-2.4 [facility] Serum or plasma calcium autumn urement (mass/volume)Ordered By: Ekaterina Dennis on 02-03-2023 Calcium [Mass/Vol] 9.3 mg/dL 8.5-10.1 [facility] Serum or plasma cholesterol in HDL measurement (mass/volume)Ordered By: Ekaterina Dennis on 02-03-2023 Cholesterol in HDL [Mass/Vol] 115 mg/dL >40 [facility] Comment on above: The drugs N-Acetylcy steine and Metamizole may falsely depress this assay. Reference Range HDL <40 mg/dL Low HDL Cholesterol HDL >or= 60 mg/dL High HDL Cholesterol Serum or plasma cholesterol in VLDL measurement (mass/volume)Ordered By: Ekaterina Dennis on 02-03-2023 Cholesterol in VLDL [Mass/Vol] 14 mg/dL 5-40 [facility] Serum or plasma creatinine m easurement (mass/volume)Ordered By: Ekaterina Dennis on 02-03-2023 Creatinine [Mass/Vol] 0.70 mg/dL 0.55-1.02 [facility] Comment on above: The validity of the calculated GFR & GFRAA in patients over 70 years has not been determined. Clinical correlation is essential. Serum or plasma low density lipoprotein (LDL) cholesterol measurement (mass/volume)Ordered By: Ekaterina Dennis on 02-03-2023 Cholesterol in LDL [Mass/Vol] 87 mg/dL 0-130 [facility] Serum or plasma urea nitroge n measurement (mass/volume)Ordered By: Ekaterina Dennis on 02-03-2023 Urea nitrogen [Mass/Vol] 16 mg/dL 7-18 [facility] Thin prep Papanicolaou smear with manual screeningOrdered By: Ekaterina Dennis on 02-03-2023 Thin prep Papanicolaou smear with manual screening 21 U/L 15-37 [facility] Thin prep Papanicolaou smear with manual screening 8 5-15 [facility] Whole blood hemoglobin A1c/t otal hemoglobin ratio (mass fraction)Ordered By: Ekaterina Dennis on 02-03-2023 HbA1c (Bld) [Mass fraction] 5.7 % 3.8-5.6 [facility] Comment on above: Normal < 5.7 % Predi abetic 5.7 - 6.4 % Diabetic >or= 6.5 % Please note range changes. Absolute lymphocyte counton 01-06-2022 Lymphocytes Auto (Unsp spec) [#/Vol] 1.45 10*3/uL 0.83-4.51 [facility] Work Phone: Basophil percentageon 2021 Basophils/100 WBC (Bld) 1.1 % 0-1 [facility] Work Phone: Bilirubin [Mass/Vol] 1.30 mg/dL 0.20-1.00 [facility] Work Phone: Comment on above: For patients on eltr ombopag therapy, use of Dimension Bedias TBIL is not recommended. Chloride [Moles/Vol] 103 mmol/L 98-107 [facility]: Cholesterol [Mass/Vol] 237 mg/dL <200 [facility] Work Phone: Comment on above: <200 mg/dL Desirable 200-240 mg/dL Borderline >240 mg/dL High Risk Eosinophils/100 WBC (Bld) 1.9 % 0-5 [facility] Work Phone: [phone] Glucose [Mass/Vol] 99 mg/dL 74-106 [facility] Work Phone: Neutrophils (Bld) [#/Vol] 1.8 10*3/uL 2.0-7.7 [facility] Work Phone: Neutrophils/100 WBC (Bld) 47.2 % 47-70 [facility] Work Phone: [phone] Potassium [Moles/Vol] 4.5 mmol/L 3.5-5.1 [facility] Work Phone: [phone] Protein [Mass/Vol] 6.7 g/dL 6.4-8.2 [facility] Work Phone: Sodium [Moles/Vol] 138 mmol/L 136-145 [facility] Work Phone: Triglyceride [Mass/Vol] 84 mg/dL <199 [facility] Work Phone: Comment on above: The drugs N-Acetylcy steine and Metamizole may falsely depress this assay.Serum Triglycerides Reference Interval Normal <150 mg/dL Borderline high 150 - 199 mg/dL High 200 - 499 mg/dL Very High > or = 500 mg/dL WBC (Bld) [#/Vol] 3.7 10*3/uL 4.4-11.0 [facility] Work Phone: Blood erythrocytes count (nu mber/volume)on 01-06-2022 RBC (Bld) [#/Vol] 4.69 10*6/uL 4.2-5.4 [facility] Work Phone: Blood hemoglobin measurement (mass/volume)on 01-06-2022 Hemoglobin (Bld) [Mass/Vol] 14.9 g/dL 12.0-15.0 [facility] Work Phone: Blood lymphocytes/100 leukoc yteson 01-06-2022 Lymphocytes/100 WBC (Bld) 39.2 % 19-41 [facility] Work Phone: Blood monocytes/100 leukocyt eson 01-06-2022 Monocytes/100 WBC (Bld) 10.3 % 0-10 [facility] Work Phone: Blood platelet mean volumeon 01-06-2022 Platelet mean volume (Bld) [Entitic vol] 8.5 fL 6.2-12.0 [facility] Work Phone: Determination of erythrocyte mean corpuscular volume (MCV)on 01-06-2022 MCV (RBC) [Entitic vol] 92.3 fL 81-99 [facility] Work Phone: Hematocrit Auto (Bld) [Volum e fraction]on 01-06-2022 Hematocrit (Bld) [Volume fraction] 43.3 % 37-47 [facility] Work Phone: Laboratory - Chemistry and C hemistry - challengeon 01-06-2022 ALP [Catalytic activity/Vol] 86 U/L 45-117 [facility] Work Phone: ALT [Catalytic activity/Vol] 32 U/L 13-56 [facility] Work Phone: CO2 [Moles/Vol] 28.0 mmol/L 21.0-32.0 [facility] Work Phone: Globulin (S) [Mass/Vol] 3.0 g/dL 2.2-4.2 [facility] Work Phone: Urea nitrogen/Creatinine [Mass ratio] 24.9 mg/mg 10-20 [facility] Work Phone: Laboratory - Hematology and Cell countson 01-06-2022 Erythrocyte distribution width (RBC) [Entitic vol] 42.7 fL 35.1-43.9 [facility] Work Phone: Erythrocyte distribution width (RBC) [Ratio] 12.6 % 11.6-14.6 [facility] Work Phone: Immature granulocytes/100 WBC (Bld) 0.300 % 0.0-0.9 [facility] Work Phone: Comment on above: IG% - Immature Granu locytes (promyelocytes, myelocytes and metamyelocytes) > 1% indicates that a LEFT SHIFT is Present. MCH (RBC) [Entitic mass] 31.8 pg 27.0-32.0 [facility] Work Phone: Nucleated RBC/100 WBC (Bld) [Ratio] 0 % 0-5 [facility] Work Phone: MCHC Auto (RBC) [Mass/Vol]on 01-06-2022 MCHC (RBC) [Mass/Vol] 34.4 g/dL 32-36 [facility] Work Phone: No Panel Informationon 01-06 Estimated GFR (MDRD) Amer 103 mL/min >60 [facility] Work Phone: Comment on above: GFR Calc Estimated GFR (MDRD) Non-Af Amer 85 mL/min >60 [facility] Work Phone: Comment on above: Non- GFR Calc Thyroid Stimulating Hormone (TSH) 1.03 uIU/mL 0.358-3.74 [facility] Work Phone: Vitamin D 25-Hydroxy 53.2 ng/mL [facility] Work Phone: Comment on above: Vitamin D 25(OH) Sta tus Range Deficiency <20 ng/mL (50nmol/L) Insufficiency 20 - 30 ng/mL (50 - 75 nmol/L) Sufficiency 30 - 100 ng/mL (75 - 250 nmol/L) Toxicity >100 ng/mL (>250 nmol/L) Platelets bldon 01-06-2022 Platelets (Bld) [#/Vol] 300 10*3/uL 150-450 [facility] Work Phone: Serum or plasma albumin autumn urement (mass/volume)on 01-06-2022 Albumin [Mass/Vol] 3.7 g/dL 3.2-5.0 [facility] Work Phone: Serum or plasma albumin/glob ulin mass ratioon 01-06-2022 Albumin/Globulin [Mass ratio] 1.2 {ratio} 0.9-2.4 [facility] Work Phone: Serum or plasma calcium autumn urement (mass/volume)on 01-06-2022 Calcium [Mass/Vol] 9.2 mg/dL 8.5-10.1 [facility] Work Phone: Serum or plasma cholesterol in HDL measurement (mass/volume)on 01-06-2022 Cholesterol in HDL [Mass/Vol] 110 mg/dL >40 [facility] Work Phone: Comment on above: The drugs N-Acetylcy steine and Metamizole may falsely depress this assay. Reference Range HDL <40 mg/dL Low HDL Cholesterol HDL >or= 60 mg/dL High HDL Cholesterol Serum or plasma cholesterol in VLDL measurement (mass/volume)on 01-06-2022 Cholesterol in VLDL [Mass/Vol] 17 mg/dL 5-40 [facility] Work Phone: Serum or plasma creatinine m easurement (mass/volume)on 01-06-2022 Creatinine [Mass/Vol] 0.72 mg/dL 0.55-1.02 [facility] Work Phone: Comment on above: The validity of the calculated GFR & GFRAA in patients over 70 years has not been determined. Clinical correlation is essential. Serum or plasma low density lipoprotein (LDL) cholesterol measurement (mass/volume)on 01-06-2022 Cholesterol in LDL [Mass/Vol] 110 mg/dL 0-130 [facility] Work Phone: Serum or plasma urea nitroge n measurement (mass/volume)on 11-08-2022 Urea nitrogen [Mass/Vol] 18 mg/dL 7-18 [facility] Work Phone: Thin prep Papanicolaou smear with manual screeningon 01-06-2022 Thin prep Papanicolaou smear with manual screening 16 U/L 15-37 [facility] Work Phone: Thin prep Papanicolaou smear with manual screening 7 5-15 [facility] Work Phone: Whole blood hemoglobin A1c/t otal hemoglobin ratio (mass fraction)on 01-06-2022 HbA1c (Bld) [Mass fraction] 5.9 % 3.8-5.6 [facility] Work Phone: Comment on above: Normal < 5.7 % Predi abetic 5.7 - 6.4 % Diabetic >or= 6.5 % Please note range changes. Basophil percentageon 2021 Creatinine [Mass/Vol] 0.6 mg/dL 0.55-1.02 [facility] Work Phone: No Panel Informationon 05-15 Bedside Estimated GFR (eGFR) > 60.0000 mL/min >60 [facility] Work Phone: [facility] DEION DIGITAL SCREEN SELF REFERRAL W OR WO CAD BILATERALOrdered By: Mammography Self Referral on 10-17-2020 No mammographic evidence of malignancy. A 1 [...] Dr. Nasreen Hammond on 10/17/2020 3:53 PM [facility] Work Phone: [place], [facility] Incoming Radiant Results From [employer] - 10/17/2020 3:55 PM EDT LOCATION: [place] PROCEDURE: TYSON DEION DIGITAL SCREEN SELF REFERRAL W OR WO [...] Dr. Nasreen Hammond on 10/17/2020 3:53 PM [facility] Phone: [facility] Phone: .eGFRon 12-07-2019 eGFR AA >60 Normal >=60 [facility] Comment on above: Order Comment: Order added by Discern rule Result Comment: Resu lt = 0-14.9 mL/min/1.73 m2 Kidney failure or Dialysis Result = 15-29 mL/min/1.73 m2 Severe decrease in GFR Result = 30-59 mL/min/1.73 m2 Moderate decrease in GFR Result >= 60 mL/min/1.73 m2 Normal or increased GFR Performed By: #### E GFR #### [address] [address] eGFR Non-AA >60 Normal >=60 [facility] Comment on above: Order Comment: Order added by Discern rule Result Comment: Resu lt = 0-14.9 mL/min/1.73 m2 Kidney failure or Dialysis Result = 15-29 mL/min/1.73 m2 Severe decrease in GFR Result = 30-59 mL/min/1.73 m2 Moderate decrease in GFR Result >= 60 mL/min/1.73 m2 Normal or increased GFR Chronic kidney disease is defined as either kidney damage or GFR < 60 mL/min/1.73 m2 for >= 3 months. Kidney damage is defined as pathologic abnormalities or markers of damage including abnormalities in blood or urine tests or imaging studies. This GFR is NOT used for medication dosing. Performed By: #### E GFR #### [address] [address] Basic Metabolic Profileon Anion gap [Moles/Vol] 11 mmol/L Normal 7-17 [facility] Comment on above: Performed By: #### C [id number] #### [address] [address] Calcium [Mass/Vol] 9.9 mg/dL Normal 8.6-10.3 [facility] Comment on above: Performed By: #### C [id number] #### [address] [address] Chloride [Moles/Vol] 103 IU/L Normal 98-107 [facility] Comment on above: Performed By: #### C [id number] #### [address] [address] CO2 [Moles/Vol] 30 mmol/L Normal 21-31 [facility] Comment on above: Performed By: #### C [id number] #### [address] [address] Creatinine [Mass/Vol] 0.7 mg/dL Normal 0.6-1.2 [facility] Comment on above: Performed By: #### C [id number] #### [address] [address] Glucose [Mass/Vol] 109 mg/dL High 70-99 [facility] Comment on above: Performed By: #### C [id number] #### [facility] [address] [place] [address] Potassium [Moles/Vol] 4.9 mmol/L High 3.4-4.8 [facility] Comment on above: Performed By: #### C [id number] #### [facility] [address] [place] [address] Sodium [Moles/Vol] 139 mmol/L Normal 136-145 [facility] Comment on above: Performed By: #### C [id number] #### [address] [address] Urea nitrogen [Mass/Vol] 16 mg/dL Normal 7-25 [facility] Comment on above: Performed By: #### C [id number] #### [address] [address] Urea nitrogen/Creatinine [Mass ratio] 22.9 mg/mg High 10.0-20.0 [facility] Comment on above: Performed By: #### C [id number] #### [address] [address] Hgb A1con 12-07-2019 HbA1c (Bld) [Mass fraction] 126 mg/dL High 68-114 [facility] Comment on above: Result Comment: Math ematical Calc approx. The mean gluc equivalency of A1c Performed By: #### H BA1C #### [address] [address] HbA1c (Bld) [Mass fraction] 6.0 % A1c High 4.0-5.6 [facility] Comment on above: Result Comment: Refe rence Range: 4.0 - 5.6 % Normal 5.7 - 6.4 % Pre-Diabetes > 6.5 % Diabetes Performed By: #### H BA1C #### [address] [address] [place] [address] Lipid Panelon 12-07-2019 Cholesterol in LDL [Mass/Vol] 118 mg/dL High 0-99 [facility] Comment on above: Result Comment: The equation being used in this calculation is LDL = (Chol - HDL) - (Trig / 5) The optimal value of LDL for individual patients may vary. The patient's history of Artherosclerosis and other cardiac risk factors should be considered. Performed By: #### L SHAW #### [address] [address] Cardiac Risk 2 Normal [facility] Comment on above: Result Comment: Men Women 1/2 Average 3.43 3.27 Average 4.97 4.44 2x Average 9.55 7.05 3x Average 23.99 11.04 Performed By: #### L SHAW #### [address] [address] Cholesterol [Mass/Vol] 228 mg/dL High 25-200 [facility] Comment on above: Result Comment: 0 - 17 years of age: Desirable 0-170 Borderline High 170-199 High >=200 18 years and older: Acceptable <200 Borderline High 200-239 High >=240 Performed By: #### L SHAW #### [address] [address] Cholesterol in HDL [Mass/Vol] 98.1 mg/dL Normal >=50.0 [facility] Comment on above: Performed By: #### L SHAW #### [address] [address] Cholesterol in VLDL [Mass/Vol] 12 mg/dL Normal 8-39 [facility] Comment on above: Performed By: #### L SHAW #### [address] [address] Triglyceride [Mass/Vol] 60 mg/dL Normal 0-149 [facility] Comment on above: Result Comment: 0 - 17 years of age: Trig 90 - 129 Borderline High Trig => 130 High 18 years and older: Trig 150 - 199 Borderline High Trig 200 - 499 High Trig =>500 Very High Performed By: #### L SHAW #### [address] [address] [facility] DEION DIGITAL SCREEN RACHEL Luther 10-06-2019 IMPRESSION: Mammogra m BI-RADS: 2: Benign There is no mammographic evidence of malignancy. A 1 year screening mammogram is recommended. The patient has been entered into our database and they will receive a notification when they are due for their next exam. The patient was notified of the results. #[id number] - TYSON DEION DIGITAL SCREEN BILATERAL BILATERAL DIGITAL SCREENING MAMMOGRAM 3D/2D WITH CAD: 10/06/2019 CLINICAL: Tomosynthesis. Screening. Comparison is made to exams dated: 09/16/2018 mammogram and 08/10/2017 mammogram - [facility]. The tissue of both breasts is heterogeneously dense. This may lower the sensitivity of mammography. Current study was also evaluated with a Computer Aided Detection (CAD) system. There are benign vascular calcifications right breast. There also are benign scattered calcifications right breast. No significant masses, calcifications, or other findings are seen in either breast. There has been no significant interval change. Jamey Mercado M.D. rd/brooke:10/06/2019 09:49:08 copy to: Dr. Johnathan Mcpherson M.D., [facility], ph: [phone], fax: [phone] Handbag Framer: Marimar SAN)(Gopal), [facility] letter sent: Normal-All Doctor Names [address] [facility] [place], [place], [facility] Incoming Radiant Results From [employer] - 10/06/2019 10:14 AM EDT IMPRESSION: Mammogram BI-RADS: 2: Benign There is no mammographic evidence of malignancy. A 1 year screening mammogram is recommended. The patient has been entered into our database and they will receive a notification when they are due for their next exam. The patient was notified of the results. #[id number] - TYSON DEION DIGITAL SCREEN BILATERAL BILATERAL DIGITAL SCREENING MAMMOGRAM 3D/2D WITH CAD: 10/06/2019 CLINICAL: Tomosynthesis. Screening. Comparison is made to exams dated: 09/16/2018 mammogram and 08/10/2017 mammogram - [facility]. The tissue of both breasts is heterogeneously dense. This may lower the sensitivity of mammography. Current study was also evaluated with a Computer Aided Detection (CAD) system. There are benign vascular calcifications right breast. There also are benign scattered calcifications right breast. No significant masses, calcifications, or other findings are seen in either breast. There has been no significant interval change. Jamey Mercado M.D. rd/brooke:10/06/2019 09:49:08 copy to: Dr. Johnathan Mcpherson M.D., [facility] ph: [phone], fax: [phone] Handbag Framer: Marimar SAN)(Gopal), [facility] letter sent: Normal-All Doctor Names [id number] [facility], [place] DEXA BONE DENSITY AXIAL SKEL ETONon 08-17-2019 #[id number] - DEXA BONE DENSITY AXIAL SKELETON # BONE DENSITY EVALUATION: 08/17/2019 CLINICAL DATA: Post menopausal. RISK FACTORS: race. COMPARISON: 07/13/2016 AP L1-L3 region of spine using a Hologic unit from [facility] with reported medium fracture risk, BMD of 0.798g/cm2, T-score of -2.00, and Z-score of -0.40. 07/13/2016 Right total femur area using a Hologic unit from [facility] with reported medium fracture risk, BMD of 0.756g/cm2, T-score of -1.50, and Z-score of -0.40. 07/13/2016 Left total femur area using a Hologic unit from [facility] with reported medium fracture risk, BMD of 0.742g/cm2, T-score of -1.60, and Z-score of -0.60. FINDINGS: Bone density evaluation was performed 08/17/2019 on the right total femur area using a Hologic unit. The BMD average for the exam is 0.779 g/cm2. The T-score is -1.30 and the Z-score is -0.10. Since the previous similar exam of 07/13/2016, there has been a +0.023 or +3.0% change in the BMD value which represents no significant interval change in bone density. This matches the World Health Organization's criteria for osteopenia and places the patient at a medium risk for fracture. An additional bone density evaluation was performed 08/17/2019 on the left total femur area using a Hologic unit. The BMD average for the exam is 0.745 g/cm2. The T-score is -1.60 and the Z-score is -0.40. Since the previous similar exam of 07/13/2016, there has been a +0.003 or +0.4% change in the BMD value which represents no significant interval change in bone density. This matches the World Health Organization's criteria for osteopenia and places the patient at a medium risk for fracture. An additional bone density evaluation was performed 08/17/2019 on the AP L1-L3 region of spine using a Hologic unit. The BMD average for the exam is 0.846 g/cm2. The T-score is -1.60 and the Z-score is 0.20. Since the previous similar exam of 07/13/2016, there has been a +0.048 or +6.0% change in the BMD value which represents no significant interval change in bone density. This matches the World Health Organization's criteria for osteopenia and places the patient at a medium risk for fracture. BMD change vs previous is 3.9% for the hips. BMD change vs previous is 6.0% for the spine. This patient does not qualify for a FRAX assessment because the patient is currently receiving treatment for osteoporosis. IMPRESSION: OSTEOPENIA Patient is at medium risk for fracture. Andrew Jackson M.D. pgk/:08/17/2019 11:05:05 copy to: Dr. Johnathan Mcpherson M.D., [facility] ph: [phone], fax: [phone] Handbag Framer: Grace Garcia RT(R)(M), [facility] [id number] [facility]- [place], [place], [facility] Incoming Radiant Results From [employer] - 08/17/2019 12:02 PM EDT #[id number] - DEXA BONE DENSITY AXIAL SKELETON # BONE DENSITY EVALUATION: 08/17/2019 CLINICAL DATA: Post menopausal. RISK FACTORS: race. COMPARISON: 07/13/2016 AP L1-L3 region of spine using a Hologic unit from [facility] with reported medium fracture risk, BMD of 0.798g/cm2, T-score of -2.00, and Z-score of -0.40. 07/13/2016 Right total femur area using a Hologic unit from [facility] with reported medium fracture risk, BMD of 0.756g/cm2, T-score of -1.50, and Z-score of -0.40. 07/13/2016 Left total femur area using a Hologic unit from [facility] with reported medium fracture risk, BMD of 0.742g/cm2, T-score of -1.60, and Z-score of -0.60. FINDINGS: Bone density evaluation was performed 08/17/2019 on the right total femur area using a Hologic unit. The BMD average for the exam is 0.779 g/cm2. The T-score is -1.30 and the Z-score is -0.10. Since the previous similar exam of 07/13/2016, there has been a +0.023 or +3.0% change in the BMD value which represents no significant interval change in bone density. This matches the World Health Organization's criteria for osteopenia and places the patient at a medium risk for fracture. An additional bone density evaluation was performed 08/17/2019 on the left total femur area using a Hologic unit. The BMD average for the exam is 0.745 g/cm2. The T-score is -1.60 and the Z-score is -0.40. Since the previous similar exam of 07/13/2016, there has been a +0.003 or +0.4% change in the BMD value which represents no significant interval change in bone density. This matches the World Health Organization's criteria for osteopenia and places the patient at a medium risk for fracture. An additional bone density evaluation was performed 08/17/2019 on the AP L1-L3 region of spine using a Hologic unit. The BMD average for the exam is 0.846 g/cm2. The T-score is -1.60 and the Z-score is 0.20. Since the previous similar exam of 07/13/2016, there has been a +0.048 or +6.0% change in the BMD value which represents no significant interval change in bone density. This matches the World Health Organization's criteria for osteopenia and places the patient at a medium risk for fracture. BMD change vs previous is 3.9% for the hips. BMD change vs previous is 6.0% for the spine. This patient does not qualify for a FRAX assessment because the patient is currently receiving treatment for osteoporosis. IMPRESSION: OSTEOPENIA Patient is at medium risk for fracture. Andrew Jackson M.D. pgk/:08/17/2019 11:05:05 copy to: Dr. Johnathan Mcpherson M.D., [facility] ph: [phone], fax: [phone] Handbag Framer: Grace Garcia RT(R)(M), [facility] G0063 [place], [place] Energy Manager Cytology Reporton 2019 Energy Manager Cytology Report Clinical Information Specimen Collection Date: 07-27-19 LMP: N/A Type of specimen: Cervical/endocervical MENSES: Post-menopausal. HPV testing ordered only if ASCUS Pap. Purpose of smear: Regular periodic exam/screening Pap. GY Specimen A Liquid Prep Pap Smear, Reflex if ASCUS Adequacy Alpha Response SAT ANATOMICPATHOLOGY Endocervical Alpha Response EC/TZONE + ANATOMICPATHOLOGY Statement of Adequacy Satisfactory for Evaluation. Transformation Zone Present. Diagnosis Alpha Response GY NILM/ATROPHY ANATOMICPATHOLOGY Diagnosis NEGATIVE FOR INTRAEPITHELIAL LESION OR MALIGNANCY. Atrophic changes present. [id number] IONAL Completed by: PAMELA Cid (ASCP) (Electronically signed by) 08/02/19 11:17 EDT GY Disclaimer Interp The PAP smear is a screening test with an inherent, but low, probability of error. A negative report indicates a low probability of significant cervical pathology. Your patient should be reminded to consult you immediately if she experiences new symptoms and to continue having regular PAP smears in the future. GY Disclaimer Alpha Energy Manager Disclaimer ANATOMICPATHOLOGY Normal [facility] Comment on above: Performed By: #### G YNCYTREP #### [facility] (DEFAULT) [address] [place] [address] Gynecology Office/Clinic Not [place] 07-28-2019 Gynecology Office/Clinic Note Chief Complaint 63 y/o presents for annual exam. Last pap negative 07/09/16, pt due. Mammogram due. Pt would like to discuss continuation of fosamax medication. History of Present Illness Joelle presents for annual examination. She is a former patient of Dr. Coreen Sánchez and reports that she has been diligent in annual wellness with both Dr. Sánchez and Dr. 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 She denies any gynecologic concerns or problems. She does experience vaginal dryness but denies need for intervention for this complaint. She has been treated for the past 5 years for osteoporosis with Fosamax and provided a copy of her most recent BMD scan that revealed stable osteopenia from the prior examination. She states that the plan has been for discontinuation of her Fosamax after 5 years of use (this year). We reviewed that ongoing protection from vertebral fracture seems to persist but risk of nonvertebral fracture may increase with discontinuation though data is not commanding. We discussed repeating the BMD this year and in 2 years to assess for decline and if bone mass exceeded 5% loss that consideration of restarting therapy would be indicated. She is agreeable. She has no other concerns. Abnormal vaginal discharge: No Breast lumps/pain: No Clotting with periods: No Heavy periods: No Hot flashes: No Irregular periods: No Night sweats: No Painful periods: No Painful sex: No Pelvic pain: No Spotting: No Vaginal dryness: No Vaginal itch/burning/odor: No Additional HPI details: 63 y/o presents for annual exam. Last pap negative 07/09/16, pt due. Mammogram due. Pt would like to discuss continuation of fosamax medication. Review of Systems Constitutional: No fevers, chills, sweats Eye: No recent visual problems ENMT: No ear pain, nasal congestion, sore throat Respiratory: No shortness of breath, cough Cardiovascular: No Chest pain, palpitations, syncope Gastrointestinal: No nausea, vomiting, diarrhea Genitourinary: No hematuria/dysuria,vag inal itching,unusual d/c Dalton/Lymph: Negative for bruising tendency, swollen lymph glands Endocrine: Negative for excessive thirst, excessive hunger Musculoskeletal: No back pain, neck pain, joint pain, muscle pain, decreased range of motion Integumentary: No rash, pruritus, abrasions Neurologic: Alert & oriented X 4 Psychiatric: No anxiety, depression Physical Exam Vitals & Measurements BP: 124/78 HT: 157 cm WT: 51.6 kg DOSE WT: 51.6 kg BMI: 20.93 General: Alert and oriented, well nourished, no acute distress. Eye: PERRL, EOMI, normal conjunctiva HEENT: Normocephalic, normal hearing, moist oral mucosa, no scleral icterus, no sinus tenderness. Neck: Supple, non-tender, no lymphadenopathy. Lungs: Clear to auscultation and percussion, non-labored respiration. Heart: Normal rate, regular rhythm, no murmur, gallop or edema. Abdomen: Soft, non-tender, non-distended, normal bowel sounds, no masses. Musculoskeletal: Normal range of motion and strength, no tenderness or swelling. Skin: Skin is warm, dry and pink, no rashes or lesions. Neurologic: Awake, alert, and oriented X3, CN II-XII intact. Psychiatric: Cooperative, appropriate mood and affect. Breast exam: Dense breasts noted bilaterally, no masses, axillary lymphadenopathy, tenderness, skin changes or nipple discharge. External Genitalia: Normal urethral meatus, no lesions, vulvar skin intact. Genitourinary: Mildly atrophic vaginal mucosa , no lesions or abnormal discharge, cervix intact without lesions or bleeding. No cystocele or rectocele. Bimanual exam: Normal sized, non-tender, mobile uterus. No adnexal tenderness or masses. 2 finger insertion permitted w/o signficant discomfort but noted to be tight against the introitus. Additional Vitals Body Mass Index Measured: 20.93 kg/m2 Assessment/Plan Breast cancer screening Orders provided as pt gets imaging through [facility]. Ordered: 00817 AMB New Preventative Visit; 65 years and older MG Mammogram Digital Screen Bilat +Deion Cervical cancer screening Pt will be advised of any abnormal results. Ordered: Pathology Pap Smear Request Encounter for gynecological examination (general) (routine) without abnormal findings Pap is obtained today and pt advised on relevance of cotesting. It may be her final pap provided results are reassuring. Patient is advised on the current daily recommended allowances for Vitamin D of 800 IU/day and 1000 mg Calcium daily. We discussed rich dietary sources of these important nutrients.She is already supplementing. 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 I advised her that improvements in memory, concentration, eye sight, mood stability and vasomotor sx may be noted. She is also advised that adequate intake of these nutrients reduce inflammation in the cardiovascular system thereby reducing risks of stroke, mi, htn and elevated cholesterol. We reviewed positive impact on joint health and even improvement in the health of skin and hair. I encouraged omega 3 fatty acid increase through diet or supplementation and quality sources were reviewed. Joelle lives an active lifestyle though this has been compromised d/t Covid 19 restrictions. She maintains daily walking and is encouraged on weight bearing exercise to continue to support bone health. Annual exams reviewed as well as limitations of her new insurance (Medicare). f/u prn or 1 year. Ordered: 86505 AMB New Preventative Visit; 65 years and older Osteoporosis D/c fosamax as planned. Pt will get a bmd this year and plan for repeat in 2 years. Vit D, calcium, and weight bearing exercise are encouraged. She is also advised to clear the path between her bed and bathroom to avoid trips/falls at night which are a greater risk for her d/t underlying osteoporosis. Ordered: 41616 AMB New Preventative Visit; 65 years and older BD Bone Density (2 Areas) Problem List/Past Medical History Ongoing Hypertension Osteopenia Historical Chickenpox Measles Mumps Rubella Procedure/Surgical History right knee meniscus repair (03/2019) Medications Aspirin Low Dose, 81 mg, Oral, Daily B 100 Complex, 1 tabs, Oral, Daily Calcium 600+D, Oral Fish Oil, Oral Fosamax 70 mg oral tablet, 70 mg, 1 tabs, Oral, Weekly glucosamine-chondroit in oral kit lisinopril 5 mg oral tablet multivitamin, Daily Allergies sulfa drugs (Rash) Social History Alcohol Never Substance Abuse Denies All Tobacco Never (less than 100 in lifetime) Use:. Family History Cardiac disorder: Father. Cardiovascular disease: Father. Diabetes mellitus: Father. Diagnostic Results No qualifying data available (XRay) No qualifying data available (CT) No qualifying data available (Ultrasound) No qualifying data available (MRI) Electronically signed by Cezar PRITCHETT, Nory Mao 07/27/19 22:31 EDT Normal [facility] MRI Knee w/o Contrast Righto n 01-23-2019 MRI Knee w/o Contrast Right CLINICAL HISTORY: Right knee pain, medially, for approximately 3 weeks. Injury while squatting. MRI RIGHT KNEE WITHOUT CONTRAST: TECHNIQUE: Multiplanar long and short TR and TE images were obtained through the right knee. FINDINGS: Medial compartment: There is a complex morphology flap tear noted throughout the medial meniscus posterior horn and posterior body segment, with a sizable 7 mm flap fragment displaced superior to the posterior horn, adjacent to the posterior horn root attachment, and 2.5 mm of medial subluxation of the body segment. Low to intermediate grade articular cartilage loss is noted in the posterior weightbearing surface of the medial femoral condyle. Lateral compartment: The lateral meniscus is intact. Low-grade articular cartilage loss is noted in the posterior lateral tibial plateau, beneath the lateral meniscus posterior horn. The lateral compartment cartilage appears otherwise intact. Intercondylar notch: The cruciate ligaments are intact. Collateral ligaments: Intact. Patellofemoral compartment: Small sub-5 mm areas of high-grade articular cartilage loss and mild subchondral bone edema are noted in the medial patellar facet and inferior central patella. There is otherwise low-grade articular cartilage loss in the patella. The trochlear cartilage appears intact. Extensor mechanism: The patellar and distal quadriceps tendons are intact. A moderate knee joint effusion is present. A 5 cm x 2.7 cm x 1.7 cm Houston's cyst is noted. The bone marrow is otherwise normal in signal, without bone marrow edema or signs of acute fracture. IMPRESSION: 1. Complex morphology flap tear throughout the medial meniscus posterior horn and posterior body segment, with a sizable flap fragment displaced superior to the posterior horn, adjacent to the posterior horn root attachment, and 2.5 mm of medial subluxation of the body segment. 2. Moderate patellofemoral compartment and mild medial compartment osteoarthrosis of the right knee, with small areas of high-grade articular cartilage loss and mild subchondral bone edema in the patella. 3. Moderate knee joint effusion and a 5 cm Houston's cyst. Final Dictated by: Chris Parada MD Dictated DT/TM: 01/23/2019 9:29 am Signed by: Chris Parada MD Signed (Electronic Signature): 01/23/2019 9:35 am (If Report Is Signed, Electronically Signed in Other Vendor System) Normal [facility] Vital Signs Date Time Vital Sign Value Performing Clinician Pelon martinez 02-25-2023 09:19-0500 Body temperature 97.3 [degF] Dr. Ekaterina Dennis Work Phone: [facility] 02-25-2023 09:19-0500 Diastolic blood pressure 69 mm[Hg] Dr. Ekaterina Dennis Work Phone: [facility] 02-25-2023 09:19-0500 Heart rate 65 /min Dr. Ekaterina Dennis Work Phone: [facility] 02-25-2023 09:19-0500 Respiratory rate 16 /min Dr. Ekaterina Dennis Work Phone: [facility] 02-25-2023 09:19-0500 SaO2% (BldA) [Mass fraction] 96 % Dr. Ekaterina Dennis Work Phone: [facility] 02-25-2023 09:19-0500 Systolic blood pressure 105 mm[Hg] Dr. Ekaterina Dennis Work Phone: [facility] 02-25-2023 06:54-0500 Body height 157.[address] Ekaterina Dennis Work Phone: [facility] 02-25-2023 06:54-0500 Body mass index (BMI) [Ratio] 20.9 kg/m2 Dr. Ekaterina Dennis Work Phone: [facility] 02-25-2023 06:54-0500 Body weight [address] Ekaterina Dennis Work Phone: [facility] 12-21-2022 10:06-0400 Body mass index (BMI) [Ratio] 21.4 kg/m2 Dr. Ekaterina Dennis Work Phone: [facility] 12-21-2022 09:48-0400 Body height 156.[address] Ekaterina Dennis Work Phone: [facility] 12-21-2022 09:48-0400 Body weight 52.[address] Ekaterina Dennis Work Phone: [facility] Encounters Encounter Date Encounter Type Care Provider Facility Start: 11-06-2024 ambulatory Ekaterina Dennis Facility: [facility] Start: 07-13-2024 End: 07-13-[address] Ekaterina Dennis MD Work Phone: [facility] Work Phone: Start: 07-13-2024 End: 07-13-[address] Ekaterina Dennis MD -Outpatient Bone Densitometry Work Phone: Start: 07-13-2024 End: 07-13-2024 ambulatory Ekaterina Dennis Facility:[facility] Start: 02-15-2024 End: 02-15-2024 ambulatory Ekaterina Loreleikamlesh Facility:[facility] Start: 02-25-2023 Non-patient / Non-visit Dr. Andres Dennis Work Phone: [facility] Start: 02-25-2023 End: 02-25-2023 Admission to same day surgery center Dr. Ekaterina Dennis Work Phone: [facility]-Endoscopy Work Phone: Start: 02-25-2023 End: 02-25-[address] Ekaterina Dennis Work Phone: [facility] Work Phone: Start: 02-03-2023 End: 02-03-[address] Ekaterina Dennis Work Phone: [facility] Work Phone: Start: 02-03-2023 End: 02-03-[address] Ekaterina Dennis Work Phone: [facility]-Laboratory Work Phone: Start: 12-21-2022 Non-patient / Non-visit Dr. Andres Dennis Work Phone: [facility] Work Phone: Start: 10-27-2022 End: 10-27-2022 ambulatory [facility] Work Phone: Start: 10-27-2022 End: 10-27-2022 Patient encounter procedure [facility]-Outpatient Breast Imaging Work Phone: Start: 07-03-2022 End: 07-03-2022 ambulatory [facility] Work Phone: Start: 07-03-2022 End: 07-03-2022 Discharged Recurring [facility]-Physical Therapy Work Phone: Start: 02-11-2022 End: 02-11-2022 ambulatory [facility] Work Phone: Start: 02-11-2022 End: 02-11-2022 Discharged Recurring [facility]-Physical Therapy Start: 01-14-2022 Registered Recurring [facility]-Physical Therapy Start: 01-06-2022 End: 01-06-2022 ambulatory [facility] Work Phone: Start: 01-06-2022 End: 01-06-2022 Patient encounter procedure [facility]-Laboratory Start: 10-20-2021 End: 10-20-2021 ambulatory [facility] Work Phone: Start: 10-20-2021 End: 10-20-2021 Patient encounter procedure [facility]-Outpatient Breast Imaging Start: 07-22-2021 End: 07-22-2021 Patient encounter procedure [facility]-Outpatient Bone Densitometry Start: 05-15-2021 End: 05-15-2021 Patient encounter procedure [facility]-Cat Scan, [facility] Start: 04-21-2021 End: 04-21-2021 Patient encounter procedure [facility]-MRI - [facility] Start: 04-01-2021 End: 04-01-2021 Patient encounter procedure [facility]-Radiology, [place] Start: 10-17-2020 End: 10-18-2020 ambulatory JOHNATHAN YANICK ALEJANDRO [facility] Start: 10-17-2020 End: 10-17-2020 Subsequent hospital visit by physician Str Mammography Rm3 [facility] Comment on above: Visit for screening mammogram Start: 12-07-2019 End: 12-08-2019 Patient encounter procedure JOHNATHAN HERNDON ALEJANDRO Facility:[facility] Start: 10-06-2019 End: 10-06-2019 Subsequent hospital visit by physician Str Mammography Rm2 [facility] Comment on above: Breast cancer screen ing Start: 09-18-2019 End: 09-18-2019 Subsequent hospital visit by physician Str Mammography 2 [facility] Comment on above: Breast screening Start: 08-17-2019 End: 08-17-2019 Subsequent hospital visit by physician Str [facility] Dexa [facility] Comment on above: Osteoporosis, unspec ified osteoporosis type, unspecified pathological fracture presence Start: 01-23-2019 End: 01-24-2019 [facility] Start: 01-19-2019 End: 01-20-2019 Patient encounter procedure [facility] Facility:[facility] Procedures Date Procedure Procedure Detail Performing Clinician Start: 07-13-2024 Dual energy X-ray absorptiometry Dr. Ekaterina Dennis MD Work Phone: Start: 02-25-[address] Ekaterina Dennis Work Phone: Start: 10-27-2022 Screening mammography Start: 10-20-2021 Screening mammography Start: 07-22-2021 Dual energy X-ray absorptiometry Start: 05-15-2021 CT of abdomen with contrast Start: 04-21-2021 MRI of thoracic spine Start: 04-01-2021 Plain chest X-ray Start: 10-17-2020 Screening mammograph y bi 2-view breast inc cad Mammography Self Referral Start: 10-06-2019 Screening mammograph y bi 2-view breast inc cad Nory Jolly Work Phone: Start: 08-17-2019 Dxa bone density rickie dy 1/> sites axial skel Nory E Senokozlieff Work Phone: Plan of Treatment Date Care Activity Detail Author Start: 02-25-2023 Patient discharge [facility] Start: 10-17-2022 Screening for malignant neoplasm of breast Breast cancer screen [facility] Work Phone: Start: 10-20-2021 MG Breast - bilateral Screening [facility] Work Phone: Start: 10-20-2021 Screening mammography SCRN MAMM (CAD)W/DEION BILAT [facility] Work Phone: Start: 07-22-2021 Dual energy X-ray absorptiometry Dexa Bone Density Study [facility] Work Phone: Start: 10-30-2020 Influenza vaccination Flu vaccine (#1) [facility] Work Phone: Start: 09-16-2020 Screening for malignant neoplasm of breast Breast cancer screen [place], [place] Start: 10-31-2019 Influenza vaccination [place] Start: 10-06-2019 End: 10-06-2019 Appointment 10/06/2019 Appointment Radiology [facility] Start: 09-18-2019 End: 09-18-2019 Appointment 09/18/2019 Appointment Radiology [facility] Start: 07-30-2019 Annual Wellness Visit (AWV) Annual Wellness Visit (AWV) [place] Start: 06-20-2019 Shingles Vaccine (2 of 2) Shingles Vaccine (2 of 2) [place], [place] Start: 2018 Pneumococcal 65+ years Vaccine (1 of 1 - PPSV23) Pneumococcal 65+ years Vaccine (1 of 1 - PPSV23) [place], [place] Start: 2018 Pneumococcal 65+ years Vaccine (2 of 2 - PPSV23) Pneumococcal 65+ years Vaccine (2 of 2 - PPSV23) [place], [place] Start: 12-15-2003 Screening for malignant neoplasm of colon Colon cancer screen colonoscopy [place], [place] Start: 12-15-2003 Shingles Vaccine (1 of 2) Shingles Vaccine (1 of 2) [place], [place] Start: 1998 Screening for malignant neoplasm of colon Colon cancer screen colonoscopy [facility] Work Phone: Start: 1993 Lipid panel Lipid screen [place], [place] Start: 1974 Screening for malignant neoplasm of cervix Cervical cancer screen [place], [place] Start: 1972 DTaP/Tdap/Td vaccine (1 - Tdap) DTaP/Tdap/Td vaccine (1 - Tdap) [place], [place] Start: 1968 HIV screening HIV screen [place], [place] Start: 1953 Hepatitis C screening Hepatitis C screen [place], [place] Colonoscopy [facility] Patient referral [facility] Work Phone: Payers Date Payer Category Payer Self-pay [id number] 2019 Medicare 2019 Unknown 2018 Medicare MEDICARE MEDICAR E PART A AND B xxxxxxxxxxx 2018-Present [phone] [place] [address] xxxxxxxxxxx [id number] 2018 Medicare MEDICARE MEDICAR E PART A AND B [id number] 2018-Present [phone] [id number] [place] [id number] 2018 Medicare [id number] 2018 Unknown BCBS ANTHEM [facility] SUPP xxxxxxxxxxxx 2018-Present [address] [place] [address] xxxxxxxxxxxx [id number] 2018 Unknown BCBS ANTHEM MEDI CARE SUPP [id number] 2018-Present [address] [place] [address] [id number] 2018 Unknown [id number] .[id number] 1955 Unknown [id number] 1955 Unknown [id number] 1955 Unknown [id number] [id number] 1955 Unknown [id number] [id number] Unknown [id number] Unknown [id number] [id number] Unknown [id number] Social History Date Type Detail Facility Tobacco smoking stat [facility] Unknown if ever smoked [place] Sex Assigned At Not on file [facility] Start: 10-17-2020 End: 02-19-2023 Tobacco smoking status NHIS Never smoker [facility] Start: 10-17-2020 Tobacco use and exposure Never used [facility] Start: 1955 Sex Assigned At Female [employer] Work Phone: Start: 12-21-2022 End: 02-19-2023 Tobacco smoking status NHIS Unknown if ever smoked [facility] Goals Date Patient Goal Desired Activity /State Mental Status Date Assessment Result Facility 02-25-2023 Cognitive function Touch/Shaking [facility] Work Phone: History and physical note 02-25-2023 Note Date & Type Note Facility 02-25-2023 History and physical note Note Date/Time February 25, 2023 6:56am [facility] Medical Records Department [address] [place] [address] History & Physical Exam 02/25/23 0654 MR#: [id number] Acct: [id number] Name: JOELLE KIRKPATRICK Rep #:[id number] : 1955 67 From: Sachin Rosenthal MD PCP: Dr. Ekaterina Dennis MD Status:[facility] Location: [place] [address] HPI - General General Date of Admission: 11/14/19 Date of Service: 02/25/23 Chief Complaint: Personal history of colon polyps HPI Narrative JOELLE KIRKPATRICK, is a 67 F who presents for colonoscopy. She has not had any previous ones done locally most recently she had them done in [facility]. In approximately 2007 she had 2 adenomatous polyps removed. In 2013 she had a colonoscopy that was normal. That was March 2013. She denies any abdominal pain. No bright red blood per rectum or melena. No unexpected weight loss. Health otherwise is good other than for prediabetes. There is no family history of colon cancer. [facility] Medical History (Updated 02/25/23 @ 06:[address] Sachin Rosenthal MD) Arthritis Cervical spinal stenosis Dietary restriction Family hx of colon cancer History of echocardiogram History of irregular heartbeat History of stress test HTN (hypertension) Hx of adenomatous polyp of colon Non-smoker Osteopenia Post-menopausal Pre-diabetes Wears glasses Home Medications calcium citrate 315 mg calcium-vitamin D3 6.25 mcg (250 unit) tablet 1 tab PO DAILY 12/21/22 [History Last Taken 02/24/23] cholecalciferol (vitamin D3) 50 mcg (2,000 unit) capsule 50 mcg PO DAILY 12/21/22 [History Last Taken 02/24/23] lisinopril 10 mg tablet 10 mg PO QHS 12/21/22 [History Last Taken 02/24/23] multivitamin 1 tab PO DAILY 12/21/22 [History Last Taken 02/23/23] omega-3 fatty acids-fish oil 300 mg-500 mg capsule (Fish Oil) 1 cap PO DAILY 12/21/22 [History Last Taken 02/21/23] yvcaxpmcraa-phi-dkidcidnq-vitC capsule (Glucosamine Complex-MSM capsule) 2 cap PO DAILY 02/19/23 [History Last Taken 02/24/23] lutein 10 mg tablet 10 mg PO DAILY 02/19/23 [History Last Taken 02/23/23] Allergy/AdvReac Type Severity Reaction Status Date / Time Sulfa (Sulfonamide Allergy Rash Verified 02/25/23 06:51 Antibiotics) Azo Grantrisin Allergy Rash Uncoded 12/21/22 09:40 Family History (Updated 12/21/22 @ 09:27 by Jojo Oswald) Aunt Colon cancer Uncle Colon cancer Surgical History (Updated 12/21/22 @ 09:27 by Jojo Oswald) Hx of colonoscopy Hx of right knee surgery Social History (Updated 12/21/22 @ 09:39 by Jojo Oswald) household members: spouse current occupational status: retired Smoking Status: Never smoker alcohol intake: never substance use type: does not use ROS Constitutional Constitutional: Reports systems reviewed and no addt'l complaints, except as documented Cardiovascular Cardiovascular: Denies chest pain Respiratory/Chest Respiratory/Chest: Denies shortness of breath at rest Gastrointestinal Gastrointestinal: Denies abdominal pain, change in bowel habits, hematochezia ormelena Physical Exam Const alert, oriented x3 and no apparent distress General Appearance: cooperative and comfortable Eyes General Eye: normal appearance of both eyes Neck General: normal visual inspection Chest inspection of chest normal Resp Effort and Inspection: able to speak in complete sentences and symmetric chest movement Auscultation: clear to auscultation bilaterally Cardio regular rate and regular rhythm GI soft to palpation, non-tender and non-distended Extremity no calf tenderness Neuro oriented x3 Psych thought process normal Assessment & Plan Assessment/Plan (1) Hx of adenomatous polyp of colon: PLAN: 67-year-old female. She presents via open access today for a colonoscopy. Most recently 1 was March 2013 and that was normal although previously she had had 1 with polyps. She is had an opportunity to ask and have questions answered. We will proceed as noted. Sachin Rosenthal M.D., F.A.C.S. 02/25/23 0656 <Electronically signed by Sachin Rosenthal MD> Cosigner Signature (if applicable): CC: Dr. Ekaterina Dennis MD; Dr. Sachin Rosenthal MD~ Signed [facility] Work Phone: Procedure note 02-25-2023 Note Date & Type Note Facility 02-25-2023 Procedure note [facility] Procedure note 02-25-2023 Note Date & Type Note Facility 02-25-2023 Procedure note [facility] Discharge summary 09-28-2022 Note Date & Type Note Facility 09-28-2022 Discharge summary Note Date/Time September 28, 2022 3:18pm [facility] Physical Therapy [facility] [address] [place] [address]. [address] [place] [address] / REHABILITATION SERVICES DISCHARGE SUMMARY MR#: [id number] Acct: [id number] Name: JOELLE KIRKPATRICK Rep #: [id number] : 1955 66 From: Becca Willis PT, Cert. MDT Referring Dr.: Dr. Ekaterina Dennis MD Status: REG RCR Insurance: MEDICARE PART A B [facility] Patient Information Patient Information: JOELLE KIRKPATRICK was seen in my office for initial evaluation on 04/01/22. The following Plan of Care was established for this patient: POC Established Initial Frequency: 2-3x /Week Initial Duration: 4-6 Weeks Anticipated Interventions Patient/Client Instruction: Educate patient on: Condition and Plan of Care For the Purpose of:: To improve self management Therapeutic Exercise to Include: Strength training, Postural training and Dynamic Lumbar Stabilization For the Purpose of:: To decrease pain and To improve muscle performance and motor function Manual Therapy Techniques to Include: Soft tissue mobilization For the Purpose of:: To decrease pain Intermittent cervical traction: Yes For the Purpose of:: To decrease pain Last Seen Last Seen: This patient was last seen in our office 07/03/22. Pertinent comments regardingtheir Physical therapy will appear below: This patient has not returned to Physical Therapy and is appropriate to return to MD for further follow-up as needed. At this point I will be discontinuing this patient from physical therapy. I would be happy to see this patient again in the future if found appropriate by the physician. Thank you! Becca Willis PT, Cert MDT Balance/Gait/Functional tests Balance/Special Test Scores Oswestry Low Back Score: 10 Oswestry Neck Score: 2 <Electronically signed by Vitor Rowland PT. MDT> 09/28/22 1518 CC: Dr. Ekaterina Dennis MD ~ ZELDA Signed [facility] Work Phone: Clinical Note 10-17-2020 Note Date & Type Note Facility 10-17-2020 Note LOCATION: [place] PROCEDURE: [facility] DEION DIGITAL SCREEN SELF REFERRAL W OR WO [...] by: Nasreen Hammond MD 10/17/20 CC Recipients: Nory Jolly MD - Fax Johnathan Mcpherson MD - Fax Final result [facility] Clinical Note 10-17-2020 Note Date & Type Note Facility 10-17-2020 Note LOCATION: [facility]: [facility] DEOIN DIGITAL SCREEN SELF REFERRAL W OR WO [...] There has been no significant interval change. [facility] Work Phone: Evaluation note Note Date & Type Note Facility Evaluation note Diagnosis Visit for screening mammogram Other screening mammogram documented in this encounter [employer] Phone: Evaluation note Note Date & Type Note Facility Evaluation note No assessment information availa ble [facility] Work Phone: Evaluation note Note Date & Type Note Facility Evaluation note Diagnosis Onset Date Hx of adenomatous polyp of colon acute [facility] Work Phone: Reason for referral (narrative) Note Date & Type Note Facility Reason for referral (narrative) No reason for referral information available [facility] Work Phone: Assessments Diagnosis Osteoporosis, unspecified osteoporosis type, unspecified pathological fracture presence Diagnosis Breast screening Breast screening, unspecified Diagnosis Breast cancer screening Breast screening, unspecified Advance Directives No Advanced Directives Records FoundDocuments on File Type Date Recorded Patient Manager Gallery Expl anation Advance Directives and Living Will Power of Line Up Machine Operator Documents on File Type Date Recorded Patient Manager Gallery Expl anation ACP-Advance Directive ACP-Power of Line Up Machine Operator Advance Directive Response Recorded Date/ Time Name of Medical Power of Line Up Machine Operator GASPER RENAE MCCALL CASIMIRO February 19, 2023 8:29am Living Will Yes February 19, 023 8:29am Power of Line Up Machine Operator Yes February 19, 2023 8:29am Summary Purpose Family History No Family History Records Found Relationship Condition Age at Onset Recorded Date/T chepe aunt Malignant neoplasm of colon Unknown uncle Malignant neoplasm of colon Unknown Reason for Referral Status Reason Specialty Diagnoses / Procedures Referred By Contact Referred To Contact Authorized Radiology Diagnoses Breast cancer screening Procedures TYSON DEION DIGITAL SCREEN BILATERAL Nory Jolly MD [address] [place] [address] Status Reason Specialty Diagnoses / Procedures Referred By Contact Referred To Contact Closed Radiology Diagnoses Visit for screening mammogram Procedures [facility] DEION DIGITAL SCREEN SELF REFERRAL W OR WO CAD BILATERAL Self Referral, Mammography Chief Complaint and Reason for Visit Chief Complaint PAIN RIGHT SIDED BACK PAIN ABDOMINAL PAIN OSTEO Chief Complaint OSTEO SCREENING Chief Complaint SCREENING RT SHOULDER PAIN. RX HERE Chief Complaint DORSALGIA RX HERE Chief Complaint SCREENING Chief Complaint SCREENING Amb Documentation Chief Complaint Amb Documentation Reason for Visit Hx of adenomatous po lyp of colon Chief Complaint Admit Date FOLLOW UP FOSAMAX USE July 13, 2024 9:1 2am Additional Source Comments Reason for Visit (unrecogniz ed section and content) Status Reason Specialty Diagnoses / Procedures Referred By Contact Referred To Contact Not Required - [facility] Radiology Diagnoses Age-related osteoporosis without current pathological fracture Procedures DEXA BONE DENSITY AXIAL SKELETON Nory Jolly MD [address] [place] [id number] [place] [address] Status Reason Specialty Diagnoses / Procedures Referred By Contact Referred To Contact Not Required - [facility] Radiology Diagnoses Encounter for screening mammogram for malignant neoplasm of breast Procedures TYSON DIGITAL SCREEN SELF REFERRAL W OR WO CAD BILATERAL Nory Jolly MD [address] [place] [address] [place] [address] Status Reason Specialty Diagnoses / Procedures Referre d By Contact Referred To Contact Closed Radiology Diagnoses Breast cancer screening Procedures TYSON DEION DIGITAL SCREEN BILATERAL Nory Jolly MD [address] [place] [address] [facility] [address] [facility] [address] [place] [address] INFORMATION SOURCE (unrecogn ized section and content) DATE CREATED AUTHOR 12/08/2019 [facility] DATE CREATED AUTHOR AUTHOR'S ORGANIZ ATION 10/19/2020 [facility] DATE CREATED AUTHOR AUTHOR'S ORGANIZ ATION 11/03/2024 [facility] Goals (unrecognized section and content) Goals may be documented in a n alternate sectionGoals may be documented in an alternate sectionGoals may be documented in an alternate sectionGoals may be documented in an alternate sectionGoals may be documented in an alternate sectionGoals may be documented in an alternate sectionGoals may be documented in an alternate sectionGoals may be documented in an alternate section Care Teams (unrecognized sec tion and content) Team Status: Active Member Role Status Dates Dr. Ekaterina Dennis MD Primary Care Provider Active Team Status: Inactive Member Role Status Dates Dr. Ekaterina Dennis MD Primary Care Provider Active Start: July 13, 2024 End: July 13, 2024 Dr. Ekaterina Dennis MD Attending Provider Active Start: July 13, 2024 End: July 13, 2024 Dr. Ekaterina Dennis MD Referring Provider Active Start: July 13, 2024 End: July 13, 2024 Team Status: Active Member Role Status Dates Dr. Ekaterina Dennis MD Primary Care Provider Active [facility] Attending Provider Active Team Status: Inactive Member Role Status Dates Dr. Ekaterina Dennis MD Primary Care Prov ider, Attending Provider, Referring Provider Active Team Status: Inactive Member Role Status Dates Dr. Ekaterina Dennis MD Primary Care Provider, Attendin g Provider Active Team Status: Active Member Role Status Dates Dr. Ekaterina Dennis MD Primary Care Provider, Referrin g Provider Active Dr. Sachin Rosenthal MD Attending Provider, Other Prov ider Active Team Status: Inactive Member Role Status Dates Dr. Ekaterina Dennis MD Primary Care Provider, Marcos ward Provider Active Dr. Sachin Rosenthal MD Attending Provider Active FOR RECORDS PERTAINING TO PATIENTS WHO ARE [...] BE BASED ON THE PRIMARY CLINICAL RECORDS. [facility] [employer] provides no warranty or guarantee of the accuracy or completeness of information in this document.
== END | disposition home or self-care (01) ==
LOC: OPBI 10:50
PROVIDERS: PCP Family Medicine; Referring Provider Family Medicine; Visit Provider Family Medicine
DX: Z12.31 Encounter for screening mammogram for malignant neoplasm of breast (principal)
CPT/HCPCS: 77063; 77067

== ENCOUNTER → 2025-02-08 | Outpatient (CLI) | payer MEDICARE, BC, SELFPAY ==
[2025-02-08 12:32] LABS: Hematocrit 42.2 % (37-47); Hemoglobin 14.2 g/dL (12.0-15.0); Immature Granulocytes Count 0.010 X10^3/uL (0.0-0.0); Mean Corp Hgb Conc 33.6 g/dL (32-36); Mean Corpuscular Volume 93.2 fL (81-99); Mean Platelet Vol. 8.6 fl (6.2-12.0); NRBC Flagged by Analyzer 0 % (0-5); Platelet Count 345 K/mm3 (150-450); RBC Distribution Width CV 13.2 % (11.6-14.6); RBC Distribution Width SD 44.1 fl (35.1-43.9); Red Blood Count 4.53 M/mm3 (4.2-5.4); White Blood Count 5.3 K/mm3 (4.4-11.0)
[2025-02-08 12:52] LABS: AST(SGOT) 26 U/L (<=31); Alanine Aminotransfer ALT/SGPT 23 U/L (<=34); Albumin, Serum 4.6 g/dL (3.4-4.8); Alkaline Phosphatase 97 U/L (35-104); Anion Gap 11 (5-15); BUN 12 mg/dL (4-19); BUN/Creat Ratio 16.1 RATIO (10-20); Calcium,Total 10.1 mg/dL (7.6-11.0); Carbon Dioxide 28.2 mmol/L (21.0-32.0); Chloride 100 mmol/L (98-108); Cholesterol 245 mg/dL (<=200); Globulin 2.3 g/dL (2.2-4.2); Glucose 101 mg/dL (70-99); Low Density Lipoprotein Calc. 120 mg/dL; Potassium 4.6 mmol/L (3.3-5.1); Triglycerides 79 mg/dL; Very Low Density Lipoprotein 16 mg/dL (5-40); cholesterol:hdl ratio screen 2.19
== END | disposition home or self-care (01) ==
PROVIDERS: PCP Family Medicine; Visit Provider Family Medicine
DX: I10 Essential (primary) hypertension (principal); R73.03 Prediabetes
CPT/HCPCS: 36415; 80053; 80061; 83036; 85025